=== PATIENT | male | born 1950 | race Caucasian/White ===

== ENCOUNTER 2017-05-10 13:04 | Inpatient (IN) | payer MEDICARE, MEDICAID ==
[2017-05-10 13:24] LABS: POC GLUCOSE 241 mg/dL (70-99)
[2017-05-10] MEDS ORDERED: ONDANSETRON PF 4 MG/2 ML VIAL. IV (14:15)
[2017-05-10 14:44] LABS: BASO # 0.1 x10^3/uL (0.0-0.2); BASO % 0 % (0-3); EOS % 0 % (0-3); HEMATOCRIT 36.2 % (39.0-53.0); HEMOGLOBIN 12.3 g/dL (13.0-17.5); LYMPH # 1.2 x10^3/uL (1.0-4.8); LYMPH % 5 % (24-48); MEAN CORPUSCULAR HEMOGLOBIN 32 pg (25-35); MEAN CORPUSCULAR HGB CONC 34 g/dL (31-37); MEAN CORPUSCULAR VOLUME 94 fL (79-100); MONO # 1.5 x10^3/uL (0.0-1.1); MONO % 6 % (0-9); NEUT # 23.3 x10^3uL (1.8-7.7); NEUT % 89 % (31-73); PLATELET COUNT 200 x10^3/uL (140-400); RED BLOOD COUNT 3.84 x10^6/uL (4.30-5.70); RED CELL DISTRIBUTION WIDTH 14.5 % (11.5-14.5); WHITE BLOOD COUNT 26.1 x10^3/uL (4.0-11.0)
[2017-05-10 14:45] LABS: ADD MAN DIFF? YES
[2017-05-10 15:04] LABS: ANION GAP 19 (6-14); BLOOD UREA NITROGEN 77 mg/dL (8-26); CALCIUM 9.8 mg/dL (8.5-10.1); CARBON DIOXIDE 23 mmol/L (21-32); CHLORIDE 86 mmol/L (98-107); CREATININE 9.6 mg/dL (0.7-1.3); GFR 5.5; GLUCOSE 227 mg/dL (70-99); MAGNESIUM 1.6 mg/dL (1.8-2.4); PHOSPHORUS 6.4 mg/dL (2.6-4.7); POTASSIUM 3.5 mmol/L (3.5-5.1); SODIUM 128 mmol/L (136-145)
[2017-05-10] MEDS ORDERED: HYDROcodone/APAP 10/325 1 TAB TABLET PO (15:15)
[2017-05-10] MEDS: KETOROLAC 15 MG/ML VIAL. IV (15:16)
[2017-05-10 15:22] LABS: % BANDS 16 % (0-9); % LYMPHS 6 % (24-48); % MONOS 9 % (0-10); % SEGS 69 % (35-66); PLT ESTIMATE ADEQUATE (ADEQUATE)
[2017-05-10 16:00] LABS: ANION GAP 21 (6-14); BLOOD UREA NITROGEN 81 mg/dL (8-26); BUN/CREATININE RATIO 8 (6-20); CALCIUM 9.6 mg/dL (8.5-10.1); CARBON DIOXIDE 23 mmol/L (21-32); CHLORIDE 85 mmol/L (98-107); CREATININE 9.8 mg/dL (0.7-1.3); GFR 5.3; GLUCOSE 213 mg/dL (70-99); POTASSIUM 3.4 mmol/L (3.5-5.1); SODIUM 129 mmol/L (136-145)
[2017-05-10] MEDS: METOPROLOL SUCC 24HR ER 50 MG TAB.ER.24H. PO (16:01)
[2017-05-10] MEDS: LISINOPRIL 2.5 MG TABLET PO (16:01)
[2017-05-10] MEDS: APIXABAN 5 MG TABLET. PO (16:02)
[2017-05-10] MEDS: CINACALCET HCL 30 MG TABLET PO (16:02)
[2017-05-10] MEDS: CALCIUM ACETATE 667 MG CAPSULE PO (16:03)
[2017-05-10] MEDS: FOLIC/VIT B COMP W-C (RENAL) TABLET. PO (16:04)
[2017-05-10 16:05] LABS: ALBUMIN/GLOBULIN RATIO 0.7 (1.0-1.7); ALK PHOS 79 U/L (46-116); ALT (SGPT) 35 U/L (16-63); AST (SGOT) 33 U/L (15-37); TOTAL BILIRUBIN 0.7 mg/dL (0.2-1.0); TOTAL PROTEIN 7.6 g/dL (6.4-8.2)
[2017-05-10] MEDS: PIPERACILLIN/TAZO IV Push 2.25 GM VIAL. IVP (16:12)
[2017-05-10] MEDS: MAGNESIUM SULFATE 2GM 50 ML IV (16:13)
[2017-05-10 16:44] LABS: POC GLUCOSE 242 mg/dL (70-99)
[2017-05-10] MEDS ORDERED: DEXTROSE 50% 25 GM / 50ML DISP.SYRIN. IV (17:45)
[2017-05-10] MEDS ORDERED: PIPERACILLIN/TAZOBACTAM 3.375 GM in IV DEXTROSE 5% 50 ML IV (18:00)
[2017-05-10 20:51] LABS: POC GLUCOSE 172 mg/dL (70-99)
[2017-05-10] MEDS: LACTOBACILLUS RHAMNOSUS GG 1 CAPSULE. PO (20:52)
[2017-05-10] MEDS: ACETAMINOPHEN 325 MG TABLET. PO (20:52)
[2017-05-11] MEDS: PIPERACILLIN/TAZO IV Push 2.25 GM VIAL. IVP ×4 (00:04→17:04)
[2017-05-11 04:25] LABS: HEMOGLOBIN 10.9 g/dL (13.0-17.5)
[2017-05-11 04:44] LABS: ALBUMIN 2.5 g/dL (3.4-5.0); ANION GAP 17 (6-14); BLOOD UREA NITROGEN 92 mg/dL (8-26); CALCIUM 9.1 mg/dL (8.5-10.1); CARBON DIOXIDE 25 mmol/L (21-32); CHLORIDE 86 mmol/L (98-107); CHOLESTEROL 110 mg/dL (0-200); CREATININE 11.3 mg/dL (0.7-1.3); GFR 4.5; GLUCOSE 210 mg/dL (70-99); HDLC 9 mg/dL (40-60); LDLC 58 mg/dL (0-100); NON-HDL CHOLESTEROL 101 mg/dL (0-129); PHOSPHORUS 7.7 mg/dL (2.6-4.7); SODIUM 128 mmol/L (136-145); TRIGLYCERIDES 214 mg/dL (0-150); VLDLC 43 mg/dL (0-40)
[2017-05-11 04:46] LABS: CHOLESTEROL/HDL RATIO 12.2
[2017-05-11 07:07] LABS: POC GLUCOSE 209 mg/dL (70-99)
[2017-05-11] MEDS: CALCIUM ACETATE 667 MG CAPSULE PO ×3 (08:00→17:03)
[2017-05-11] MEDS: APIXABAN 5 MG TABLET. PO ×2 (09:00→21:13)
[2017-05-11] MEDS: LACTOBACILLUS RHAMNOSUS GG 1 CAPSULE. PO ×2 (09:00→21:13)
[2017-05-11] MEDS ORDERED: METOPROLOL SUCC 24HR ER 25 MG TAB.ER.24H. PO (09:00)
[2017-05-11] MEDS ORDERED: IV NORMAL SALINE 1000ML BAG 1,000 ML IV ×2 (09:18)
[2017-05-11] MEDS ORDERED: diphenhydrAMINE 50 MG/ML VIAL IV ×2 (09:30)
[2017-05-11] MEDS ORDERED: DIALYSIS PATIENT. MC (09:30)
[2017-05-11] MEDS: INSULIN ASPART 300 UNITS/3 ML INSULN.PEN SQ ×3 (10:15→17:40)
[2017-05-11] MEDS: METOPROLOL SUCC 24HR ER 50 MG TAB.ER.24H. PO (11:29)
[2017-05-11] MEDS: LISINOPRIL 2.5 MG TABLET PO (11:30)
[2017-05-11] MEDS: HYDROcodone/APAP 10/325 1 TAB TABLET PO ×2 (11:30→21:17)
[2017-05-11] MEDS ORDERED: CONTRAST GIVEN MC (13:15)
[2017-05-11] MEDS: ANTI-COAG MONITOR BY PHARMACY. MC (13:38)
[2017-05-11] MEDS: VANCOMYCIN PER PHARMACY MC (13:48)
[2017-05-11] MEDS: IOHEXOL 300 MG/ML 100ML VIAL. IV (14:11)
[2017-05-11] MEDS: MORPHINE SULFATE 4 MG/ML DISP.SYRIN. IV (15:05)
[2017-05-11] MEDS: VANCOMYCIN 2 GM in IV DEXTROSE 5% 500 ML IV (15:24)
[2017-05-11] MEDS: PANTOPRAZOLE 40 MG TABLET.DR. PO (15:24)
[2017-05-11] MEDS: CINACALCET HCL 30 MG TABLET PO (15:24)
[2017-05-11] MEDS: FOLIC/VIT B COMP W-C (RENAL) TABLET. PO (15:24)
[2017-05-11] MEDS: REPAGLINIDE 0.5 MG TABLET PO (15:25)
[2017-05-11 16:15] LABS: POC GLUCOSE 181 mg/dL (70-99)
[2017-05-12] MEDS: PIPERACILLIN/TAZO IV Push 2.25 GM VIAL. IVP ×4 (00:47→17:25)
[2017-05-12 05:24] LABS: ADD MAN DIFF? NO
[2017-05-12 05:32] LABS: BASO # 0.1 x10^3/uL (0.0-0.2); BASO % 0 % (0-3); EOS # 0.3 x10^3/uL (0.0-0.7); EOS % 2 % (0-3); HEMATOCRIT 30.8 % (39.0-53.0); HEMOGLOBIN 10.6 g/dL (13.0-17.5); LYMPH # 1.1 x10^3/uL (1.0-4.8); LYMPH % 6 % (24-48); MEAN CORPUSCULAR HEMOGLOBIN 32 pg (25-35); MEAN CORPUSCULAR HGB CONC 34 g/dL (31-37); MEAN CORPUSCULAR VOLUME 94 fL (79-100); MONO # 1.6 x10^3/uL (0.0-1.1); MONO % 9 % (0-9); NEUT # 15.1 x10^3uL (1.8-7.7); NEUT % 83 % (31-73); PLATELET COUNT 178 x10^3/uL (140-400); RED BLOOD COUNT 3.29 x10^6/uL (4.30-5.70); RED CELL DISTRIBUTION WIDTH 14.7 % (11.5-14.5); WHITE BLOOD COUNT 18.1 x10^3/uL (4.0-11.0)
[2017-05-12 05:53] LABS: ALBUMIN 2.1 g/dL (3.4-5.0); ALBUMIN/GLOBULIN RATIO 0.5 (1.0-1.7); ALK PHOS 65 U/L (46-116); ALT (SGPT) 51 U/L (16-63); ANION GAP 12 (6-14); AST (SGOT) 52 U/L (15-37); BLOOD UREA NITROGEN 53 mg/dL (8-26); BUN/CREATININE RATIO 7 (6-20); CALCIUM 8.2 mg/dL (8.5-10.1); CARBON DIOXIDE 28 mmol/L (21-32); CHLORIDE 89 mmol/L (98-107); CREATININE 7.2 mg/dL (0.7-1.3); GFR 7.6; GLUCOSE 84 mg/dL (70-99); POTASSIUM 3.3 mmol/L (3.5-5.1); SODIUM 129 mmol/L (136-145); TOTAL BILIRUBIN 0.7 mg/dL (0.2-1.0); TOTAL PROTEIN 6.6 g/dL (6.4-8.2)
[2017-05-12] MEDS: HYDROcodone/APAP 10/325 1 TAB TABLET PO ×2 (06:10→17:20)
[2017-05-12 06:50] LABS: ALBUMIN 2.2 g/dL (3.4-5.0); ANION GAP 13 (6-14); BLOOD UREA NITROGEN 56 mg/dL (8-26); CALCIUM 8.2 mg/dL (8.5-10.1); CARBON DIOXIDE 28 mmol/L (21-32); CHLORIDE 90 mmol/L (98-107); CREATININE 7.2 mg/dL (0.7-1.3); GFR 7.6; GLUCOSE 83 mg/dL (70-99); PHOSPHORUS 4.3 mg/dL (2.6-4.7); POTASSIUM 3.3 mmol/L (3.5-5.1); SODIUM 131 mmol/L (136-145)
[2017-05-12] MEDS: INSULIN ASPART 300 UNITS/3 ML INSULN.PEN SQ ×3 (08:00→17:00)
[2017-05-12] MEDS: PANTOPRAZOLE 40 MG TABLET.DR. PO (08:08)
[2017-05-12] MEDS: CALCIUM ACETATE 667 MG CAPSULE PO ×3 (08:08→17:20)
[2017-05-12 08:21] LABS: POC GLUCOSE 93 mg/dL (70-99)
[2017-05-12 10:46] LABS: POC GLUCOSE 155 mg/dL (70-99)
[2017-05-12] MEDS: APIXABAN 5 MG TABLET. PO ×2 (11:51→21:41)
[2017-05-12] MEDS: LACTOBACILLUS RHAMNOSUS GG 1 CAPSULE. PO ×2 (11:51→21:41)
[2017-05-12] MEDS: FOLIC/VIT B COMP W-C (RENAL) TABLET. PO (11:51)
[2017-05-12] MEDS: MORPHINE SULFATE 4 MG/ML DISP.SYRIN. IV ×2 (11:51→17:24)
[2017-05-12] MEDS: METOPROLOL SUCC 24HR ER 50 MG TAB.ER.24H. PO (11:52)
[2017-05-12] MEDS: CINACALCET HCL 30 MG TABLET PO (11:52)
[2017-05-12] MEDS: REPAGLINIDE 0.5 MG TABLET PO (11:52)
[2017-05-12] MEDS: LISINOPRIL 2.5 MG TABLET PO (11:53)
[2017-05-12] MEDS: LINEZOLID 600 MG TABLET PO ×2 (12:03→21:41)
[2017-05-12] MEDS: VANCOMYCIN PER PHARMACY MC ×3 (14:15→14:27)
[2017-05-12] MEDS: ANTI-COAG MONITOR BY PHARMACY. MC (14:26)
[2017-05-12] MEDS: POTASSIUM CHLORIDE 20 MEQ TABLET.ER. PO (15:07)
[2017-05-12 16:19] LABS: POC GLUCOSE 152 mg/dL (70-99)
[2017-05-12 21:11] LABS: POC GLUCOSE 108 mg/dL (70-99)
[2017-05-13] MEDS: PIPERACILLIN/TAZO IV Push 2.25 GM VIAL. IVP ×3 (00:08→12:00)
[2017-05-13 05:16] LABS: ADD MAN DIFF? NO
[2017-05-13 05:36] LABS: BASO # 0.1 x10^3/uL (0.0-0.2); BASO % 0 % (0-3); EOS # 0.7 x10^3/uL (0.0-0.7); EOS % 3 % (0-3); HEMATOCRIT 32.3 % (39.0-53.0); HEMOGLOBIN 10.9 g/dL (13.0-17.5); LYMPH # 1.3 x10^3/uL (1.0-4.8); LYMPH % 5 % (24-48); MEAN CORPUSCULAR HEMOGLOBIN 32 pg (25-35); MEAN CORPUSCULAR HGB CONC 34 g/dL (31-37); MEAN CORPUSCULAR VOLUME 95 fL (79-100); MONO # 2.1 x10^3/uL (0.0-1.1); MONO % 9 % (0-9); NEUT # 20.9 x10^3uL (1.8-7.7); NEUT % 83 % (31-73); PLATELET COUNT 203 x10^3/uL (140-400); RED BLOOD COUNT 3.41 x10^6/uL (4.30-5.70); RED CELL DISTRIBUTION WIDTH 14.8 % (11.5-14.5); WHITE BLOOD COUNT 25.1 x10^3/uL (4.0-11.0)
[2017-05-13 05:47] LABS: ALBUMIN/GLOBULIN RATIO 0.4 (1.0-1.7); ALK PHOS 79 U/L (46-116); ALT (SGPT) 52 U/L (16-63); ANION GAP 11 (6-14); AST (SGOT) 40 U/L (15-37); BLOOD UREA NITROGEN 71 mg/dL (8-26); BUN/CREATININE RATIO 8 (6-20); CALCIUM 8.1 mg/dL (8.5-10.1); CARBON DIOXIDE 28 mmol/L (21-32); CHLORIDE 88 mmol/L (98-107); CREATININE 9.2 mg/dL (0.7-1.3); GFR 5.7; GLUCOSE 120 mg/dL (70-99); MAGNESIUM 2.1 mg/dL (1.8-2.4); SODIUM 127 mmol/L (136-145); TOTAL BILIRUBIN 1.1 mg/dL (0.2-1.0); TOTAL PROTEIN 6.6 g/dL (6.4-8.2)
[2017-05-13 07:40] LABS: POC GLUCOSE 121 mg/dL (70-99)
[2017-05-13] MEDS: INSULIN ASPART 300 UNITS/3 ML INSULN.PEN SQ ×3 (08:00→17:25)
[2017-05-13] MEDS ORDERED: IV NORMAL SALINE 1000ML BAG 1,000 ML IV (08:19)
[2017-05-13] MEDS ORDERED: 0.9 % SODIUM CHLORIDE 10 ML DISP.SYRIN. IV ×2 (08:30)
[2017-05-13] MEDS ORDERED: ALBUMIN HUMAN 25% 200 ML IV (08:30)
[2017-05-13] MEDS ORDERED: DIALYSIS PATIENT. MC (08:30)
[2017-05-13] MEDS: CALCIUM ACETATE 667 MG CAPSULE PO ×3 (08:41→17:22)
[2017-05-13 13:53] LABS: POC GLUCOSE 126 mg/dL (70-99)
[2017-05-13] MEDS: LINEZOLID 600 MG TABLET PO (13:54)
[2017-05-13] MEDS: FOLIC/VIT B COMP W-C (RENAL) TABLET. PO (13:54)
[2017-05-13] MEDS: PANTOPRAZOLE 40 MG TABLET.DR. PO (13:55)
[2017-05-13] MEDS: LISINOPRIL 2.5 MG TABLET PO (13:55)
[2017-05-13] MEDS: METOPROLOL SUCC 24HR ER 50 MG TAB.ER.24H. PO (13:55)
[2017-05-13] MEDS: APIXABAN 5 MG TABLET. PO (13:56)
[2017-05-13] MEDS: CINACALCET HCL 30 MG TABLET PO (13:56)
[2017-05-13] MEDS: REPAGLINIDE 0.5 MG TABLET PO (13:56)
[2017-05-13] MEDS: LACTOBACILLUS RHAMNOSUS GG 1 CAPSULE. PO (13:56)
[2017-05-13] MEDS: ANTI-COAG MONITOR BY PHARMACY. MC (15:29)
[2017-05-13] MEDS: NAFCILLIN 2 GM in IV NORMAL SALINE 100ML 100 ML IV ×2 (15:39→20:06)
[2017-05-13 16:53] LABS: POC GLUCOSE 207 mg/dL (70-99)
[2017-05-13 21:38] LABS: POC GLUCOSE 252 mg/dL (70-99)
[2017-05-14] MEDS: NAFCILLIN 2 GM in IV NORMAL SALINE 100ML 100 ML IV ×8 (00:01→21:06)
[2017-05-14] MEDS: LINEZOLID 600 MG TABLET PO ×3 (00:01→21:08)
[2017-05-14] MEDS: APIXABAN 5 MG TABLET. PO ×2 (00:01→12:26)
[2017-05-14] MEDS: LACTOBACILLUS RHAMNOSUS GG 1 CAPSULE. PO ×3 (00:01→21:06)
[2017-05-14] MEDS ORDERED: VANCOMYCIN RANDOM LEVEL. MC (06:00)
[2017-05-14 07:06] LABS: ADD MAN DIFF? NO
[2017-05-14] MEDS ORDERED: IV NORMAL SALINE 1000ML BAG 1,000 ML IV ×2 (07:30)
[2017-05-14] MEDS: POTASSIUM CHLORIDE 20 MEQ TABLET.ER. PO (07:30)
[2017-05-14 07:34] LABS: BASO # 0.1 x10^3/uL (0.0-0.2); BASO % 1 % (0-3); EOS # 0.6 x10^3/uL (0.0-0.7); EOS % 3 % (0-3); HEMATOCRIT 32.2 % (39.0-53.0); HEMOGLOBIN 10.8 g/dL (13.0-17.5); LYMPH # 1.1 x10^3/uL (1.0-4.8); LYMPH % 5 % (24-48); MEAN CORPUSCULAR HEMOGLOBIN 32 pg (25-35); MEAN CORPUSCULAR HGB CONC 34 g/dL (31-37); MEAN CORPUSCULAR VOLUME 95 fL (79-100); MONO # 1.7 x10^3/uL (0.0-1.1); MONO % 8 % (0-9); NEUT # 18.7 x10^3uL (1.8-7.7); NEUT % 84 % (31-73); PLATELET COUNT 231 x10^3/uL (140-400); RED CELL DISTRIBUTION WIDTH 15.1 % (11.5-14.5); WHITE BLOOD COUNT 22.3 x10^3/uL (4.0-11.0)
[2017-05-14] MEDS: PANTOPRAZOLE 40 MG TABLET.DR. PO (07:35)
[2017-05-14] MEDS: CALCIUM ACETATE 667 MG CAPSULE PO ×3 (07:37→17:21)
[2017-05-14 07:55] LABS: MAGNESIUM 2.3 mg/dL (1.8-2.4)
[2017-05-14 07:55] LABS: ALBUMIN 1.8 g/dL (3.4-5.0); ALBUMIN/GLOBULIN RATIO 0.4 (1.0-1.7); ALK PHOS 90 U/L (46-116); ALT (SGPT) 39 U/L (16-63); ANION GAP 10 (6-14); AST (SGOT) 25 U/L (15-37); BLOOD UREA NITROGEN 50 mg/dL (8-26); BUN/CREATININE RATIO 7 (6-20); CALCIUM 8.7 mg/dL (8.5-10.1); CARBON DIOXIDE 29 mmol/L (21-32); CHLORIDE 94 mmol/L (98-107); CREATININE 6.7 mg/dL (0.7-1.3); GFR 8.3; GLUCOSE 232 mg/dL (70-99); POTASSIUM 3.7 mmol/L (3.5-5.1); SODIUM 133 mmol/L (136-145); TOTAL BILIRUBIN 2.9 mg/dL (0.2-1.0); TOTAL PROTEIN 6.4 g/dL (6.4-8.2)
[2017-05-14 08:00] LABS: THYROID STIM HORMONE (TSH) 4.052 uIU/mL (0.358-3.74)
[2017-05-14 08:05] LABS: POC GLUCOSE 210 mg/dL (70-99)
[2017-05-14] MEDS: INSULIN ASPART 300 UNITS/3 ML INSULN.PEN SQ ×3 (08:17→17:27)
[2017-05-14 08:34] LABS: SEDIMENTATION RATE 118 (0-15)
[2017-05-14] MEDS ORDERED: DIALYSIS PATIENT. MC (09:00)
[2017-05-14] MEDS: DEXAMETHASONE SOD PHOS 4 MG/ML VIAL IV ×3 (09:30→17:21)
[2017-05-14 12:05] LABS: POC GLUCOSE 194 mg/dL (70-99)
[2017-05-14] MEDS: CINACALCET HCL 30 MG TABLET PO (12:25)
[2017-05-14] MEDS: FOLIC/VIT B COMP W-C (RENAL) TABLET. PO (12:25)
[2017-05-14] MEDS: REPAGLINIDE 0.5 MG TABLET PO (12:25)
[2017-05-14] MEDS: MORPHINE SULFATE 2 MG/ML DISP.SYRIN. IV (12:25)
[2017-05-14] MEDS: LISINOPRIL 2.5 MG TABLET PO (12:26)
[2017-05-14] MEDS: METOPROLOL SUCC 24HR ER 50 MG TAB.ER.24H. PO (12:26)
[2017-05-14] MEDS: HYDROcodone/APAP 10/325 1 TAB TABLET PO (13:34)
[2017-05-14 13:51] LABS: AMMONIA 10 mcmol/L (11-34)
[2017-05-14 13:52] LABS: ALBUMIN 1.8 g/dL (3.4-5.0); ALK PHOS 97 U/L (46-116); ALT (SGPT) 36 U/L (16-63); AST (SGOT) 22 U/L (15-37); DIRECT BILIRUBIN 1.7 mg/dL (0.0-0.2); TOTAL BILIRUBIN 2.7 mg/dL (0.2-1.0); TOTAL PROTEIN 6.7 g/dL (6.4-8.2)
[2017-05-14] MEDS: ANTI-COAG MONITOR BY PHARMACY. MC (14:25)
[2017-05-14] MEDS ORDERED: CONTRAST GIVEN MC (14:30)
[2017-05-14] MEDS: IOHEXOL 300 MG/ML 100ML VIAL. IV (14:30)
[2017-05-14 17:41] LABS: POC GLUCOSE 298 mg/dL (70-99)
[2017-05-15] MEDS: NAFCILLIN 2 GM in IV NORMAL SALINE 100ML 100 ML IV ×7 (00:10→23:53)
[2017-05-15] MEDS: DEXAMETHASONE SOD PHOS 4 MG/ML VIAL IV ×5 (00:10→23:53)
[2017-05-15 05:05] LABS: ADD MAN DIFF? NO
[2017-05-15 05:29] LABS: BASO % 0 % (0-3); EOS % 0 % (0-3); HEMATOCRIT 30.6 % (39.0-53.0); HEMOGLOBIN 10.2 g/dL (13.0-17.5); LYMPH # 0.9 x10^3/uL (1.0-4.8); LYMPH % 5 % (24-48); MEAN CORPUSCULAR HEMOGLOBIN 32 pg (25-35); MEAN CORPUSCULAR HGB CONC 34 g/dL (31-37); MEAN CORPUSCULAR VOLUME 95 fL (79-100); MONO # 1.1 x10^3/uL (0.0-1.1); MONO % 6 % (0-9); NEUT # 16.7 x10^3uL (1.8-7.7); NEUT % 89 % (31-73); PLATELET COUNT 270 x10^3/uL (140-400); RED BLOOD COUNT 3.22 x10^6/uL (4.30-5.70); RED CELL DISTRIBUTION WIDTH 14.8 % (11.5-14.5); WHITE BLOOD COUNT 18.7 x10^3/uL (4.0-11.0)
[2017-05-15 05:53] LABS: MAGNESIUM 2.3 mg/dL (1.8-2.4)
[2017-05-15 05:54] LABS: ALBUMIN 1.8 g/dL (3.4-5.0); ANION GAP 12 (6-14); BLOOD UREA NITROGEN 50 mg/dL (8-26); CALCIUM 8.1 mg/dL (8.5-10.1); CARBON DIOXIDE 25 mmol/L (21-32); CHLORIDE 96 mmol/L (98-107); CREATININE 5.5 mg/dL (0.7-1.3); GFR 10.4; GLUCOSE 310 mg/dL (70-99); PHOSPHORUS 3.8 mg/dL (2.6-4.7); POTASSIUM 4.3 mmol/L (3.5-5.1); SODIUM 133 mmol/L (136-145)
[2017-05-15] MEDS: ANTI-COAG MONITOR BY PHARMACY. MC (09:19)
[2017-05-15] MEDS: PANTOPRAZOLE 40 MG TABLET.DR. PO (09:30)
[2017-05-15] MEDS: CINACALCET HCL 30 MG TABLET PO (09:31)
[2017-05-15] MEDS: LISINOPRIL 2.5 MG TABLET PO (09:31)
[2017-05-15] MEDS: FOLIC/VIT B COMP W-C (RENAL) TABLET. PO (09:31)
[2017-05-15] MEDS: LACTOBACILLUS RHAMNOSUS GG 1 CAPSULE. PO ×2 (09:31→20:27)
[2017-05-15] MEDS: METOPROLOL SUCC 24HR ER 50 MG TAB.ER.24H. PO (09:32)
[2017-05-15] MEDS: LINEZOLID 600 MG TABLET PO ×2 (09:32→20:27)
[2017-05-15] MEDS: CALCIUM ACETATE 667 MG CAPSULE PO ×3 (09:32→16:36)
[2017-05-15] MEDS: INSULIN ASPART 300 UNITS/3 ML INSULN.PEN SQ ×3 (09:47→18:09)
[2017-05-15 11:29] LABS: VITAMIN-B12 > 2000 pg/mL (247-911)
[2017-05-15 13:00] LABS: POC GLUCOSE 283 mg/dL (70-99)
[2017-05-15] MEDS ORDERED: AMINO AC 3%/ELECTROLYTE/GLYCER 1,000 ML IV (13:15)
[2017-05-15] MEDS: REPAGLINIDE 0.5 MG TABLET PO (14:19)
[2017-05-15 18:09] LABS: MRSA BY PCR Negative (Negative)
[2017-05-15 18:46] LABS: POC GLUCOSE 314 mg/dL (70-99)
[2017-05-16] MEDS: NAFCILLIN 2 GM in IV NORMAL SALINE 100ML 100 ML IV ×2 (03:57→08:45)
[2017-05-16] MEDS: DEXAMETHASONE SOD PHOS 4 MG/ML VIAL IV ×4 (05:45→17:53)
[2017-05-16 05:46] LABS: ADD MAN DIFF? NO
[2017-05-16 05:50] LABS: BASO # 0.1 x10^3/uL (0.0-0.2); BASO % 0 % (0-3); EOS # 0.4 x10^3/uL (0.0-0.7); EOS % 2 % (0-3); HEMOGLOBIN 10.2 g/dL (13.0-17.5); LYMPH # 1.5 x10^3/uL (1.0-4.8); LYMPH % 8 % (24-48); MEAN CORPUSCULAR HEMOGLOBIN 32 pg (25-35); MEAN CORPUSCULAR HGB CONC 34 g/dL (31-37); MEAN CORPUSCULAR VOLUME 95 fL (79-100); MONO # 0.9 x10^3/uL (0.0-1.1); MONO % 5 % (0-9); NEUT # 15.8 x10^3uL (1.8-7.7); NEUT % 84 % (31-73); PLATELET COUNT 344 x10^3/uL (140-400); RED BLOOD COUNT 3.15 x10^6/uL (4.30-5.70); WHITE BLOOD COUNT 18.7 x10^3/uL (4.0-11.0)
[2017-05-16 06:29] LABS: ALBUMIN 1.7 g/dL (3.4-5.0); ALBUMIN/GLOBULIN RATIO 0.4 (1.0-1.7); ALK PHOS 75 U/L (46-116); ALT (SGPT) 24 U/L (16-63); ANION GAP 17 (6-14); AST (SGOT) 15 U/L (15-37); BLOOD UREA NITROGEN 68 mg/dL (8-26); BUN/CREATININE RATIO 10 (6-20); CALCIUM 8.4 mg/dL (8.5-10.1); CARBON DIOXIDE 23 mmol/L (21-32); CHLORIDE 94 mmol/L (98-107); CREATININE 6.9 mg/dL (0.7-1.3); GLUCOSE 273 mg/dL (70-99); PHOSPHORUS 6.2 mg/dL (2.6-4.7); POTASSIUM 4.2 mmol/L (3.5-5.1); SODIUM 134 mmol/L (136-145); TOTAL BILIRUBIN 1.8 mg/dL (0.2-1.0); TOTAL PROTEIN 6.2 g/dL (6.4-8.2)
[2017-05-16 08:26] LABS: POC GLUCOSE 265 mg/dL (70-99)
[2017-05-16] MEDS: PANTOPRAZOLE 40 MG TABLET.DR. PO (08:44)
[2017-05-16] MEDS: FOLIC/VIT B COMP W-C (RENAL) TABLET. PO (08:45)
[2017-05-16] MEDS: LINEZOLID 600 MG TABLET PO ×2 (08:45→20:01)
[2017-05-16] MEDS: CINACALCET HCL 30 MG TABLET PO (08:45)
[2017-05-16] MEDS: LISINOPRIL 2.5 MG TABLET PO (08:45)
[2017-05-16] MEDS: REPAGLINIDE 0.5 MG TABLET PO (08:45)
[2017-05-16] MEDS: LACTOBACILLUS RHAMNOSUS GG 1 CAPSULE. PO ×2 (08:45→20:01)
[2017-05-16] MEDS: CALCIUM ACETATE 667 MG CAPSULE PO ×3 (08:45→17:53)
[2017-05-16] MEDS: METOPROLOL SUCC 24HR ER 50 MG TAB.ER.24H. PO (08:46)
[2017-05-16] MEDS: INSULIN ASPART 300 UNITS/3 ML INSULN.PEN SQ ×3 (08:48→17:57)
[2017-05-16] MEDS: HEPARIN for IV BOLUS 10,000 UNIT/10 ML VIAL. IV (09:15)
[2017-05-16] MEDS ORDERED: ANTI-COAG MONITOR BY PHARMACY. MC (09:15)
[2017-05-16] MEDS: NAFCILLIN IV ×3 (13:12→20:02)
[2017-05-16] MEDS: NORMAL SALINE IV ×3 (13:12→20:02)
[2017-05-16 13:18] LABS: POC GLUCOSE 283 mg/dL (70-99)
[2017-05-16] MEDS ORDERED: CONTRAST GIVEN MC (14:00)
[2017-05-16] MEDS: IOHEXOL 300 MG/ML 10ML VIAL. IT (14:00)
[2017-05-16 16:13] LABS: ALBUM 2.2 g/dL (2.9-4.4); ALPHA 1 0.4 g/dL (0.0-0.4); ALPHA 2 1.1 g/dL (0.4-1.0); ANA INTERP Negative (.); BETA 0.8 g/dL (0.7-1.3); M-SPIKE Not Observed g/dL (Not Observed); PROTEIN TOTAL 5.5 g/dL (6.0-8.5); SPEP AG RATIO 0.7 (0.7-1.7)
[2017-05-16 17:45] LABS: POC GLUCOSE 332 mg/dL (70-99)
[2017-05-16] MEDS: HYDROcodone/APAP 10/325 1 TAB TABLET PO (18:24)
[2017-05-17] MEDS: DEXAMETHASONE SOD PHOS 4 MG/ML VIAL IV ×4 (01:36→18:00)
[2017-05-17] MEDS: NORMAL SALINE IV ×6 (01:36→20:20)
[2017-05-17] MEDS: NAFCILLIN IV ×6 (01:36→20:20)
[2017-05-17] MEDS: HYDROcodone/APAP 10/325 1 TAB TABLET PO ×3 (05:03→20:19)
[2017-05-17 05:29] LABS: ADD MAN DIFF? NO
[2017-05-17 05:40] LABS: BASO # 0.1 x10^3/uL (0.0-0.2); BASO % 0 % (0-3); EOS # 0.3 x10^3/uL (0.0-0.7); EOS % 2 % (0-3); HEMATOCRIT 31.4 % (39.0-53.0); HEMOGLOBIN 10.5 g/dL (13.0-17.5); LYMPH % 6 % (24-48); MEAN CORPUSCULAR HEMOGLOBIN 32 pg (25-35); MEAN CORPUSCULAR HGB CONC 34 g/dL (31-37); MEAN CORPUSCULAR VOLUME 95 fL (79-100); MONO % 6 % (0-9); NEUT # 14.6 x10^3uL (1.8-7.7); NEUT % 86 % (31-73); PLATELET COUNT 370 x10^3/uL (140-400); RED BLOOD COUNT 3.31 x10^6/uL (4.30-5.70); RED CELL DISTRIBUTION WIDTH 15.4 % (11.5-14.5); WHITE BLOOD COUNT 16.9 x10^3/uL (4.0-11.0)
[2017-05-17 05:57] LABS: ALBUMIN 1.7 g/dL (3.4-5.0); ALBUMIN/GLOBULIN RATIO 0.3 (1.0-1.7); ALK PHOS 80 U/L (46-116); ALT (SGPT) 19 U/L (16-63); ANION GAP 16 (6-14); AST (SGOT) 11 U/L (15-37); BLOOD UREA NITROGEN 93 mg/dL (8-26); BUN/CREATININE RATIO 12 (6-20); CALCIUM 8.3 mg/dL (8.5-10.1); CARBON DIOXIDE 23 mmol/L (21-32); CHLORIDE 93 mmol/L (98-107); CREATININE 7.9 mg/dL (0.7-1.3); GFR 6.8; GLUCOSE 377 mg/dL (70-99); PHOSPHORUS 6.6 mg/dL (2.6-4.7); POTASSIUM 4.2 mmol/L (3.5-5.1); SODIUM 132 mmol/L (136-145); TOTAL BILIRUBIN 1.7 mg/dL (0.2-1.0); TOTAL PROTEIN 6.7 g/dL (6.4-8.2)
[2017-05-17] MEDS: INSULIN ASPART 300 UNITS/3 ML INSULN.PEN SQ ×4 (08:00→16:36)
[2017-05-17 08:16] LABS: POC GLUCOSE 315 mg/dL (70-99)
[2017-05-17] MEDS: PANTOPRAZOLE 40 MG TABLET.DR. PO (08:33)
[2017-05-17] MEDS: LINEZOLID 600 MG TABLET PO ×2 (08:34→20:20)
[2017-05-17] MEDS: CINACALCET HCL 30 MG TABLET PO (08:34)
[2017-05-17] MEDS: LACTOBACILLUS RHAMNOSUS GG 1 CAPSULE. PO ×2 (08:34→20:19)
[2017-05-17] MEDS: CALCIUM ACETATE 667 MG CAPSULE PO ×3 (08:34→16:36)
[2017-05-17] MEDS: REPAGLINIDE 0.5 MG TABLET PO (08:34)
[2017-05-17] MEDS: LISINOPRIL 2.5 MG TABLET PO (08:34)
[2017-05-17] MEDS: FOLIC/VIT B COMP W-C (RENAL) TABLET. PO (08:34)
[2017-05-17] MEDS: METOPROLOL SUCC 24HR ER 50 MG TAB.ER.24H. PO (08:35)
[2017-05-17] MEDS: IOHEXOL 300 MG/ML 10ML VIAL. IT (13:27)
[2017-05-17 14:24] LABS: CSF GLUCOSE 239 mg/dL (37-70)
[2017-05-17 14:46] LABS: CSF PROTEIN 526.4 mg/dL (15.0-45.0)
[2017-05-17 14:47] LABS: CSF CLARITY CLEAR; CSF COLOR YELLOW; CSF MON % 79 %; CSF OTHER % 2 %; CSF PMN % 19 %; CSF RBC COUNT 0; CSF WBC COUNT 17
[2017-05-17 15:00] LABS: POC GLUCOSE 331 mg/dL (70-99)
[2017-05-17 16:57] LABS: POC GLUCOSE 309 mg/dL (70-99)
[2017-05-17] MEDS ORDERED: IV NORMAL SALINE 1000ML BAG 1,000 ML IV ×2 (17:22)
[2017-05-17] MEDS ORDERED: diphenhydrAMINE 50 MG/ML VIAL IV ×2 (17:30)
[2017-05-17] MEDS ORDERED: DIALYSIS PATIENT. MC (17:30)
[2017-05-17 19:12] LABS: HEMOGLOBIN A1C 6.3 % (4.8-5.6)
[2017-05-17 21:02] LABS: POC GLUCOSE 209 mg/dL (70-99)
[2017-05-17] MEDS: INSULIN DETEMIR 300 UNITS/3 ML INSULN.PEN. SQ (23:05)
[2017-05-18] MEDS: NORMAL SALINE IV ×6 (00:39→19:36)
[2017-05-18] MEDS: DEXAMETHASONE SOD PHOS 4 MG/ML VIAL IV ×4 (00:39→18:01)
[2017-05-18] MEDS: NAFCILLIN IV ×6 (00:39→19:36)
[2017-05-18] MEDS: HYDROcodone/APAP 10/325 1 TAB TABLET PO (04:47)
[2017-05-18 06:06] LABS: ADD MAN DIFF? NO
[2017-05-18 06:19] LABS: BASO # 0.1 x10^3/uL (0.0-0.2); BASO % 1 % (0-3); EOS # 0.3 x10^3/uL (0.0-0.7); EOS % 2 % (0-3); HEMATOCRIT 29.6 % (39.0-53.0); LYMPH # 1.3 x10^3/uL (1.0-4.8); LYMPH % 8 % (24-48); MEAN CORPUSCULAR HEMOGLOBIN 32 pg (25-35); MEAN CORPUSCULAR HGB CONC 34 g/dL (31-37); MEAN CORPUSCULAR VOLUME 95 fL (79-100); MONO # 0.8 x10^3/uL (0.0-1.1); MONO % 5 % (0-9); NEUT # 13.6 x10^3uL (1.8-7.7); NEUT % 84 % (31-73); PLATELET COUNT 346 x10^3/uL (140-400); RED BLOOD COUNT 3.13 x10^6/uL (4.30-5.70); RED CELL DISTRIBUTION WIDTH 14.7 % (11.5-14.5); WHITE BLOOD COUNT 16.2 x10^3/uL (4.0-11.0)
[2017-05-18 06:44] LABS: ALBUMIN 1.7 g/dL (3.4-5.0); ALBUMIN/GLOBULIN RATIO 0.4 (1.0-1.7); ALK PHOS 65 U/L (46-116); ALT (SGPT) 23 U/L (16-63); ANION GAP 12 (6-14); AST (SGOT) 17 U/L (15-37); BLOOD UREA NITROGEN 60 mg/dL (8-26); BUN/CREATININE RATIO 11 (6-20); CALCIUM 8.3 mg/dL (8.5-10.1); CARBON DIOXIDE 28 mmol/L (21-32); CHLORIDE 95 mmol/L (98-107); CREATININE 5.7 mg/dL (0.7-1.3); GLUCOSE 199 mg/dL (70-99); POTASSIUM 4.3 mmol/L (3.5-5.1); SODIUM 135 mmol/L (136-145); TOTAL BILIRUBIN 1.7 mg/dL (0.2-1.0); TOTAL PROTEIN 6.3 g/dL (6.4-8.2)
[2017-05-18] MEDS ORDERED: PROCHLORPERAZINE 10 MG/2 ML VIAL. IV ×2 (07:00→15:45)
[2017-05-18] MEDS ORDERED: MORPHINE SULFATE 2 MG/ML DISP.SYRIN. IV (07:00)
[2017-05-18] MEDS ORDERED: ONDANSETRON PF 4 MG/2 ML VIAL. IV ×2 (07:00→15:45)
[2017-05-18] MEDS ORDERED: fentaNYL PF VIAL 100 MCG/2 ML VIAL IV ×5 (07:00→15:45)
[2017-05-18] MEDS ORDERED: HYDROmorphone 2 MG/ML VIAL IV (07:00)
[2017-05-18] MEDS ORDERED: LIDOCAINE 1% PF 2 ML VIAL. ID ×2 (07:00→15:45)
[2017-05-18] MEDS: PANTOPRAZOLE 40 MG TABLET.DR. PO (07:30)
[2017-05-18] MEDS: CALCIUM ACETATE 667 MG CAPSULE PO ×3 (08:00→17:00)
[2017-05-18 08:07] LABS: POC GLUCOSE 181 mg/dL (70-99)
[2017-05-18] MEDS: IV RINGERS,LACTATED 1000ML 1,000 ML IV ×2 (08:08→15:32)
[2017-05-18] MEDS: INSULIN ASPART 300 UNITS/3 ML INSULN.PEN SQ ×2 (08:18→17:00)
[2017-05-18] MEDS: REPAGLINIDE 0.5 MG TABLET PO (09:00)
[2017-05-18] MEDS: FOLIC/VIT B COMP W-C (RENAL) TABLET. PO (09:00)
[2017-05-18] MEDS: CINACALCET HCL 30 MG TABLET PO (09:00)
[2017-05-18] MEDS: METOPROLOL SUCC 24HR ER 50 MG TAB.ER.24H. PO (09:00)
[2017-05-18] MEDS: LACTOBACILLUS RHAMNOSUS GG 1 CAPSULE. PO ×2 (09:00→21:23)
[2017-05-18] MEDS: LINEZOLID 600 MG TABLET PO ×2 (09:00→21:23)
[2017-05-18] MEDS: LISINOPRIL 2.5 MG TABLET PO (09:00)
[2017-05-18] MEDS ORDERED: GELATIN SPONGE SIZE 100. (10:14)
[2017-05-18] MEDS ORDERED: THROMBIN TOPICAL 20,000 UNIT SPRAY.SYRN KIT TP (10:14)
[2017-05-18] MEDS ORDERED: LIDOCAINE 2% PF Vial for OR 5 ML VIAL. (11:15)
[2017-05-18] MEDS ORDERED: ONDANSETRON PF 4 MG/2 ML VIAL. (11:15)
[2017-05-18] MEDS ORDERED: FAMOTIDINE 20 MG/2 ML VIAL (11:15)
[2017-05-18] MEDS ORDERED: REMIFENTANIL 2 MG VIAL. IV (11:15)
[2017-05-18] MEDS ORDERED: PROPOFOL 20 ML IV (11:15)
[2017-05-18] MEDS ORDERED: fentaNYL PF VIAL 100 MCG/2 ML VIAL (11:15)
[2017-05-18] MEDS ORDERED: MIDAZOLAM HCL/PF 2 MG/2 ML VIAL. (11:15)
[2017-05-18] MEDS: IV NORMAL SALINE 1000ML BAG 1,000 ML IV (11:27)
[2017-05-18] MEDS ORDERED: KETAMINE HCL 500 MG/10 ML VIAL. (12:52)
[2017-05-18] MEDS: LIDOCAINE 2%/EPI 1:100,000 20 ML VIAL. (13:04)
[2017-05-18] MEDS: BUPIVACAINE MPF 0.5% 30 ML VIAL. (13:04)
[2017-05-18] MEDS: BACITRACIN 50,000 UNIT in IV NORMAL SALINE 1000ML BAG 1,000 ML IRR (13:04)
[2017-05-18] MEDS ORDERED: PROPOFOL 100 ML IV (13:17)
[2017-05-18] MEDS ORDERED: DEXAMETHASONE SOD PHOS 20 MG/5 ML VIAL. (13:17)
[2017-05-18] MEDS ORDERED: PHENYLEPHRINE 10 MG/ML VIAL. (13:17)
[2017-05-18] MEDS ORDERED: DESFLURANE > 120 MINUTES IH (13:17)
[2017-05-18] MEDS ORDERED: PHENYLEPHRINE in 0.9% NACL PF 1 MG/10 ML SYRINGE. IV (13:17)
[2017-05-18 14:00] LABS: POC GLUCOSE 145 mg/dL (70-99)
[2017-05-18] MEDS ORDERED: PROPOFOL 50 ML IV (14:07)
[2017-05-18] MEDS ORDERED: MAGNESIUM SULFATE 2GM 50 ML IV (15:00)
[2017-05-18] MEDS ORDERED: IV NORMAL SALINE 1000ML BAG 1,000 ML IV (15:00)
[2017-05-18] MEDS ORDERED: METHOCARBAMOL 750 MG TABLET PO (15:15)
[2017-05-18 15:24] LABS: POC GLUCOSE 183 mg/dL (70-99)
[2017-05-18] MEDS ORDERED: MORPHINE SULFATE 2 MG/ML DISP.SYRIN. (15:29)
[2017-05-18] MEDS: fentaNYL PF VIAL 100 MCG/2 ML VIAL IV ×5 (15:30→18:03)
[2017-05-18] MEDS ORDERED: ANTI-COAG MONITOR BY PHARMACY. MC (15:30)
[2017-05-18] MEDS: MORPHINE SULFATE 2 MG/ML DISP.SYRIN. IV ×3 (15:37→22:43)
[2017-05-18] MEDS: HYDROmorphone 2 MG/ML VIAL IV ×4 (15:50→16:48)
[2017-05-18] MEDS ORDERED: diphenhydrAMINE 50 MG/ML VIAL IV ×2 (17:30)
[2017-05-18] MEDS ORDERED: DEXTROSE 50% 25 GM / 50ML DISP.SYRIN. IV (17:45)
[2017-05-18 17:56] LABS: POC GLUCOSE 196 mg/dL (70-99)
[2017-05-18] MEDS ORDERED: ACETAMINOPHEN 325 MG TABLET. PO (19:15)
[2017-05-18] MEDS: oxyCODONE/APAP 5/325 1 TAB TABLET PO ×2 (19:35→23:23)
[2017-05-18] MEDS ORDERED: hydrALAZINE 20 MG/ML VIAL. IVP (20:00)
[2017-05-18] MEDS: INSULIN DETEMIR 300 UNITS/3 ML INSULN.PEN. SQ (21:25)
[2017-05-18 21:28] LABS: POC GLUCOSE 220 mg/dL (70-99)
[2017-05-19] MEDS: DEXAMETHASONE SOD PHOS 4 MG/ML VIAL IV ×4 (00:29→18:18)
[2017-05-19] MEDS: IV NORMAL SALINE 1000ML BAG 1,000 ML IV ×2 (04:00→17:20)
[2017-05-19] MEDS: NORMAL SALINE IV ×6 (04:15→21:39)
[2017-05-19] MEDS: NAFCILLIN IV ×6 (04:15→21:39)
[2017-05-19] MEDS: oxyCODONE/APAP 5/325 1 TAB TABLET PO ×2 (05:25→09:45)
[2017-05-19 06:26] LABS: ANION GAP 14 (6-14); BLOOD UREA NITROGEN 82 mg/dL (8-26); CALCIUM 8.7 mg/dL (8.5-10.1); CARBON DIOXIDE 24 mmol/L (21-32); CHLORIDE 95 mmol/L (98-107); CREATININE 6.7 mg/dL (0.7-1.3); GFR 8.3; GLUCOSE 183 mg/dL (70-99); POTASSIUM 4.6 mmol/L (3.5-5.1); SODIUM 133 mmol/L (136-145)
[2017-05-19] MEDS ORDERED: ONDANSETRON PF 4 MG/2 ML VIAL. IV ×2 (07:00→14:15)
[2017-05-19] MEDS ORDERED: HYDROmorphone 2 MG/ML VIAL IV (07:00)
[2017-05-19] MEDS ORDERED: LIDOCAINE 1% PF 2 ML VIAL. ID (07:00)
[2017-05-19] MEDS ORDERED: fentaNYL PF VIAL 100 MCG/2 ML VIAL IV (07:00)
[2017-05-19] MEDS ORDERED: PROCHLORPERAZINE 10 MG/2 ML VIAL. IV (07:00)
[2017-05-19] MEDS: PANTOPRAZOLE 40 MG TABLET.DR. PO (07:30)
[2017-05-19] MEDS: CALCIUM ACETATE 667 MG CAPSULE PO ×3 (08:00→17:00)
[2017-05-19] MEDS: INSULIN ASPART 300 UNITS/3 ML INSULN.PEN SQ ×3 (08:00→16:28)
[2017-05-19] MEDS: MORPHINE SULFATE 2 MG/ML DISP.SYRIN. IV ×4 (08:14→21:41)
[2017-05-19] MEDS: LISINOPRIL 2.5 MG TABLET PO (09:00)
[2017-05-19] MEDS ORDERED: DIALYSIS PATIENT. MC ×2 (09:00→12:45)
[2017-05-19] MEDS: LINEZOLID 600 MG TABLET PO ×2 (09:00→21:40)
[2017-05-19] MEDS: REPAGLINIDE 0.5 MG TABLET PO (09:00)
[2017-05-19] MEDS: LACTOBACILLUS RHAMNOSUS GG 1 CAPSULE. PO ×2 (09:00→21:39)
[2017-05-19] MEDS: FOLIC/VIT B COMP W-C (RENAL) TABLET. PO (09:00)
[2017-05-19] MEDS: CINACALCET HCL 30 MG TABLET PO (09:00)
[2017-05-19] MEDS: METOPROLOL SUCC 24HR ER 50 MG TAB.ER.24H. PO (09:45)
[2017-05-19] MEDS ORDERED: IV NORMAL SALINE 1000ML BAG 1,000 ML IV ×2 (12:39)
[2017-05-19] MEDS ORDERED: diphenhydrAMINE 50 MG/ML VIAL IV ×2 (12:45)
[2017-05-19 15:19] LABS: ALBUMIN,CSF 396 mg/dL (11-48); ALBUMIN,SERUM 2.8 g/dL (3.6-4.8); CSF IGG INDEX 0.3 (0.0-0.7); IGG,SERUM 1046 mg/dL (700-1600)
[2017-05-19 16:26] LABS: POC GLUCOSE 120 mg/dL (70-99)
[2017-05-19] MEDS: MORPHINE SULFATE 4 MG/ML DISP.SYRIN. IV (16:26)
[2017-05-19 20:41] LABS: POC GLUCOSE 165 mg/dL (70-99)
[2017-05-19] MEDS: INSULIN DETEMIR 300 UNITS/3 ML INSULN.PEN. SQ (21:46)
[2017-05-20] MEDS: DEXAMETHASONE SOD PHOS 4 MG/ML VIAL IV ×3 (00:12→21:47)
[2017-05-20] MEDS: NORMAL SALINE IV ×6 (00:12→20:00)
[2017-05-20] MEDS: NAFCILLIN IV ×6 (00:12→20:00)
[2017-05-20] MEDS: MORPHINE SULFATE 4 MG/ML DISP.SYRIN. IV ×3 (00:13→21:51)
[2017-05-20] MEDS: IV NORMAL SALINE 1000ML BAG 1,000 ML IV ×2 (06:09→21:57)
[2017-05-20] MEDS: PANTOPRAZOLE 40 MG TABLET.DR. PO (06:10)
[2017-05-20] MEDS: INSULIN ASPART 300 UNITS/3 ML INSULN.PEN SQ ×3 (08:00→17:00)
[2017-05-20 08:28] LABS: POC GLUCOSE 150 mg/dL (70-99)
[2017-05-20] MEDS: CALCIUM ACETATE 667 MG CAPSULE PO ×3 (09:26→17:18)
[2017-05-20] MEDS: LISINOPRIL 2.5 MG TABLET PO (09:26)
[2017-05-20] MEDS: LINEZOLID 600 MG TABLET PO ×2 (09:27→21:46)
[2017-05-20] MEDS: FOLIC/VIT B COMP W-C (RENAL) TABLET. PO (09:27)
[2017-05-20] MEDS: REPAGLINIDE 0.5 MG TABLET PO (09:27)
[2017-05-20] MEDS: CINACALCET HCL 30 MG TABLET PO (09:27)
[2017-05-20] MEDS: LACTOBACILLUS RHAMNOSUS GG 1 CAPSULE. PO ×2 (09:28→21:46)
[2017-05-20] MEDS: METOPROLOL SUCC 24HR ER 50 MG TAB.ER.24H. PO (09:28)
[2017-05-20] MEDS: HEPARIN PF for SUB-Q USE 5,000 UNIT/0.5 ML VIAL. SQ ×3 (09:39→21:55)
[2017-05-20 12:12] LABS: POC GLUCOSE 189 mg/dL (70-99)
[2017-05-20] MEDS: oxyCODONE/APAP 5/325 1 TAB TABLET PO ×2 (12:41→17:25)
[2017-05-20] MEDS: fentaNYL PF VIAL 100 MCG/2 ML VIAL IV (15:57)
[2017-05-20 16:34] LABS: POC GLUCOSE 126 mg/dL (70-99)
[2017-05-20 20:21] LABS: POC GLUCOSE 132 mg/dL (70-99)
[2017-05-20] MEDS: INSULIN DETEMIR 300 UNITS/3 ML INSULN.PEN. SQ (21:56)
[2017-05-21] MEDS: NAFCILLIN IV ×6 (00:10→22:17)
[2017-05-21] MEDS: NORMAL SALINE IV ×6 (00:10→22:17)
[2017-05-21] MEDS: oxyCODONE/APAP 5/325 1 TAB TABLET PO ×3 (06:14→18:20)
[2017-05-21 06:18] LABS: BASO # 0.1 x10^3/uL (0.0-0.2); BASO % 1 % (0-3); EOS # 0.5 x10^3/uL (0.0-0.7); EOS % 3 % (0-3); HEMATOCRIT 27.9 % (39.0-53.0); HEMOGLOBIN 9.1 g/dL (13.0-17.5); LYMPH # 1.7 x10^3/uL (1.0-4.8); LYMPH % 10 % (24-48); MEAN CORPUSCULAR HEMOGLOBIN 32 pg (25-35); MEAN CORPUSCULAR HGB CONC 33 g/dL (31-37); MEAN CORPUSCULAR VOLUME 98 fL (79-100); MONO # 0.8 x10^3/uL (0.0-1.1); MONO % 5 % (0-9); NEUT % 83 % (31-73); PLATELET COUNT 334 x10^3/uL (140-400); RED BLOOD COUNT 2.85 x10^6/uL (4.30-5.70); RED CELL DISTRIBUTION WIDTH 15.6 % (11.5-14.5); WHITE BLOOD COUNT 18.1 x10^3/uL (4.0-11.0)
[2017-05-21] MEDS: HEPARIN PF for SUB-Q USE 5,000 UNIT/0.5 ML VIAL. SQ (06:18)
[2017-05-21 06:28] LABS: ADD MAN DIFF? YES
[2017-05-21 06:38] LABS: ANION GAP 14 (6-14); BLOOD UREA NITROGEN 77 mg/dL (8-26); CALCIUM 8.7 mg/dL (8.5-10.1); CARBON DIOXIDE 27 mmol/L (21-32); CHLORIDE 96 mmol/L (98-107); CREATININE 6.5 mg/dL (0.7-1.3); GFR 8.6; GLUCOSE 133 mg/dL (70-99); POTASSIUM 4.3 mmol/L (3.5-5.1); SODIUM 137 mmol/L (136-145)
[2017-05-21 07:01] LABS: % BANDS 2 % (0-9); % EOS 1 % (0-5); % LYMPHS 21 % (24-48); % MONOS 3 % (0-10); % SEGS 73 % (35-66); PLT ESTIMATE ADEQUATE (ADEQUATE)
[2017-05-21] MEDS: CINACALCET HCL 30 MG TABLET PO (07:29)
[2017-05-21] MEDS: REPAGLINIDE 0.5 MG TABLET PO (07:29)
[2017-05-21] MEDS: LINEZOLID 600 MG TABLET PO (07:30)
[2017-05-21] MEDS: CALCIUM ACETATE 667 MG CAPSULE PO ×3 (07:30→17:00)
[2017-05-21] MEDS: FOLIC/VIT B COMP W-C (RENAL) TABLET. PO (07:30)
[2017-05-21] MEDS: LACTOBACILLUS RHAMNOSUS GG 1 CAPSULE. PO ×2 (07:30→22:16)
[2017-05-21] MEDS: DEXAMETHASONE SOD PHOS 4 MG/ML VIAL IV ×2 (07:31→22:15)
[2017-05-21] MEDS: PANTOPRAZOLE 40 MG TABLET.DR. PO (07:31)
[2017-05-21] MEDS: LISINOPRIL 2.5 MG TABLET PO (07:31)
[2017-05-21] MEDS: METOPROLOL SUCC 24HR ER 50 MG TAB.ER.24H. PO (07:35)
[2017-05-21] MEDS: INSULIN ASPART 300 UNITS/3 ML INSULN.PEN SQ ×3 (07:41→17:00)
[2017-05-21 08:14] LABS: POC GLUCOSE 118 mg/dL (70-99)
[2017-05-21] MEDS: IV NORMAL SALINE 1000ML BAG 1,000 ML IV (09:20)
[2017-05-21 12:13] LABS: POC GLUCOSE 124 mg/dL (70-99)
[2017-05-21] MEDS: POLYETHYLENE GLYCOL 3350 17 GM PACKET. PO ×2 (13:49→21:00)
[2017-05-21] MEDS ORDERED: BISACODYL 10 MG SUPP.RECT. PR (15:45)
[2017-05-21 17:00] LABS: POC GLUCOSE 111 mg/dL (70-99)
[2017-05-21] MEDS ORDERED: IV NORMAL SALINE 1000ML BAG 1,000 ML IV (18:41)
[2017-05-21] MEDS ORDERED: DIALYSIS PATIENT. MC (18:45)
[2017-05-21 21:54] LABS: POC GLUCOSE 93 mg/dL (70-99)
[2017-05-21] MEDS: MORPHINE SULFATE 4 MG/ML DISP.SYRIN. IV (22:13)
[2017-05-21] MEDS: INSULIN DETEMIR 300 UNITS/3 ML INSULN.PEN. SQ (22:44)
[2017-05-22] MEDS: oxyCODONE/APAP 5/325 1 TAB TABLET PO ×5 (00:30→23:21)
[2017-05-22] MEDS: NORMAL SALINE IV ×6 (00:31→20:40)
[2017-05-22] MEDS: NAFCILLIN IV ×6 (00:31→20:40)
[2017-05-22 05:05] LABS: ADD MAN DIFF? NO
[2017-05-22 05:10] LABS: BASO # 0.1 x10^3/uL (0.0-0.2); BASO % 1 % (0-3); EOS # 0.4 x10^3/uL (0.0-0.7); EOS % 2 % (0-3); HEMATOCRIT 27.5 % (39.0-53.0); HEMOGLOBIN 9.1 g/dL (13.0-17.5); LYMPH # 1.8 x10^3/uL (1.0-4.8); LYMPH % 10 % (24-48); MEAN CORPUSCULAR HEMOGLOBIN 32 pg (25-35); MEAN CORPUSCULAR HGB CONC 33 g/dL (31-37); MEAN CORPUSCULAR VOLUME 97 fL (79-100); MONO # 0.8 x10^3/uL (0.0-1.1); MONO % 4 % (0-9); NEUT # 15.9 x10^3uL (1.8-7.7); NEUT % 83 % (31-73); PLATELET COUNT 343 x10^3/uL (140-400); RED BLOOD COUNT 2.84 x10^6/uL (4.30-5.70); RED CELL DISTRIBUTION WIDTH 15.3 % (11.5-14.5)
[2017-05-22 05:24] LABS: ANION GAP 12 (6-14); BLOOD UREA NITROGEN 52 mg/dL (8-26); CALCIUM 8.4 mg/dL (8.5-10.1); CARBON DIOXIDE 29 mmol/L (21-32); CHLORIDE 97 mmol/L (98-107); GFR 11.6; GLUCOSE 115 mg/dL (70-99); POTASSIUM 4.1 mmol/L (3.5-5.1); SODIUM 138 mmol/L (136-145)
[2017-05-22 07:47] LABS: POC GLUCOSE 102 mg/dL (70-99)
[2017-05-22] MEDS: LACTOBACILLUS RHAMNOSUS GG 1 CAPSULE. PO ×2 (07:55→20:40)
[2017-05-22] MEDS: PANTOPRAZOLE 40 MG TABLET.DR. PO (07:55)
[2017-05-22] MEDS: REPAGLINIDE 0.5 MG TABLET PO (07:55)
[2017-05-22] MEDS: FOLIC/VIT B COMP W-C (RENAL) TABLET. PO (07:55)
[2017-05-22] MEDS: CALCIUM ACETATE 667 MG CAPSULE PO ×3 (07:55→17:00)
[2017-05-22] MEDS: INSULIN ASPART 300 UNITS/3 ML INSULN.PEN SQ ×3 (07:56→17:00)
[2017-05-22] MEDS: CINACALCET HCL 30 MG TABLET PO (07:56)
[2017-05-22] MEDS: DEXAMETHASONE SOD PHOS 4 MG/ML VIAL IV ×2 (07:56→20:40)
[2017-05-22] MEDS: POLYETHYLENE GLYCOL 3350 17 GM PACKET. PO ×2 (07:57→20:50)
[2017-05-22] MEDS: LISINOPRIL 2.5 MG TABLET PO (07:57)
[2017-05-22] MEDS: METOPROLOL SUCC 24HR ER 50 MG TAB.ER.24H. PO (07:57)
[2017-05-22] MEDS ORDERED: IV NORMAL SALINE 1000ML BAG 1,000 ML IV ×2 (12:35)
[2017-05-22] MEDS ORDERED: DIALYSIS PATIENT. MC ×2 (12:45)
[2017-05-22] MEDS: INSULIN DETEMIR 300 UNITS/3 ML INSULN.PEN. SQ (20:47)
[2017-05-22 21:10] LABS: POC GLUCOSE 85 mg/dL (70-99)
[2017-05-22 21:10] LABS: POC GLUCOSE 83 mg/dL (70-99)
[2017-05-23 04:28] LABS: ADD MAN DIFF? NO
[2017-05-23] MEDS: NAFCILLIN IV ×7 (04:40→23:59)
[2017-05-23] MEDS: NORMAL SALINE IV ×7 (04:40→23:59)
[2017-05-23 04:42] LABS: BASO # 0.1 x10^3/uL (0.0-0.2); BASO % 1 % (0-3); EOS # 0.5 x10^3/uL (0.0-0.7); EOS % 3 % (0-3); HEMATOCRIT 25.1 % (39.0-53.0); HEMOGLOBIN 8.3 g/dL (13.0-17.5); LYMPH # 2.3 x10^3/uL (1.0-4.8); LYMPH % 13 % (24-48); MEAN CORPUSCULAR HEMOGLOBIN 32 pg (25-35); MEAN CORPUSCULAR HGB CONC 33 g/dL (31-37); MEAN CORPUSCULAR VOLUME 97 fL (79-100); MONO % 5 % (0-9); NEUT # 13.8 x10^3uL (1.8-7.7); NEUT % 78 % (31-73); PLATELET COUNT 354 x10^3/uL (140-400); RED BLOOD COUNT 2.58 x10^6/uL (4.30-5.70); RED CELL DISTRIBUTION WIDTH 15.4 % (11.5-14.5); WHITE BLOOD COUNT 17.7 x10^3/uL (4.0-11.0)
[2017-05-23 05:20] LABS: ANION GAP 12 (6-14); BLOOD UREA NITROGEN 51 mg/dL (8-26); CALCIUM 8.6 mg/dL (8.5-10.1); CARBON DIOXIDE 28 mmol/L (21-32); CHLORIDE 97 mmol/L (98-107); CREATININE 5.3 mg/dL (0.7-1.3); GFR 10.8; GLUCOSE 87 mg/dL (70-99); POTASSIUM 4.2 mmol/L (3.5-5.1); SODIUM 137 mmol/L (136-145)
[2017-05-23] MEDS: INSULIN ASPART 300 UNITS/3 ML INSULN.PEN SQ ×3 (08:00→17:00)
[2017-05-23 08:04] LABS: POC GLUCOSE 86 mg/dL (70-99)
[2017-05-23] MEDS: oxyCODONE/APAP 5/325 1 TAB TABLET PO ×4 (08:34→23:58)
[2017-05-23] MEDS: FOLIC/VIT B COMP W-C (RENAL) TABLET. PO (08:35)
[2017-05-23] MEDS: LISINOPRIL 2.5 MG TABLET PO (08:35)
[2017-05-23] MEDS: REPAGLINIDE 0.5 MG TABLET PO (08:35)
[2017-05-23] MEDS: LACTOBACILLUS RHAMNOSUS GG 1 CAPSULE. PO ×2 (08:35→20:15)
[2017-05-23] MEDS: CINACALCET HCL 30 MG TABLET PO (08:36)
[2017-05-23] MEDS: CALCIUM ACETATE 667 MG CAPSULE PO ×3 (08:36→16:50)
[2017-05-23] MEDS: PANTOPRAZOLE 40 MG TABLET.DR. PO (08:36)
[2017-05-23] MEDS: METOPROLOL SUCC 24HR ER 50 MG TAB.ER.24H. PO (08:36)
[2017-05-23] MEDS: POLYETHYLENE GLYCOL 3350 17 GM PACKET. PO ×2 (08:37→20:16)
[2017-05-23 12:09] LABS: POC GLUCOSE 93 mg/dL (70-99)
[2017-05-23 17:51] LABS: POC GLUCOSE 92 mg/dL (70-99)
[2017-05-23] MEDS: INSULIN DETEMIR 300 UNITS/3 ML INSULN.PEN. SQ ×2 (21:00→21:45)
[2017-05-23 21:06] LABS: POC GLUCOSE 84 mg/dL (70-99)
[2017-05-24] MEDS: oxyCODONE/APAP 5/325 1 TAB TABLET PO ×3 (03:53→13:56)
[2017-05-24] MEDS: NORMAL SALINE IV ×4 (03:54→16:00)
[2017-05-24] MEDS: NAFCILLIN IV ×4 (03:54→16:00)
[2017-05-24 04:10] LABS: ADD MAN DIFF? NO
[2017-05-24 05:00] LABS: BASO # 0.2 x10^3/uL (0.0-0.2); BASO % 1 % (0-3); EOS # 0.5 x10^3/uL (0.0-0.7); EOS % 4 % (0-3); HEMATOCRIT 26.4 % (39.0-53.0); HEMOGLOBIN 8.9 g/dL (13.0-17.5); LYMPH % 13 % (24-48); MEAN CORPUSCULAR HEMOGLOBIN 33 pg (25-35); MEAN CORPUSCULAR HGB CONC 34 g/dL (31-37); MEAN CORPUSCULAR VOLUME 98 fL (79-100); MONO # 0.9 x10^3/uL (0.0-1.1); MONO % 6 % (0-9); NEUT % 77 % (31-73); PLATELET COUNT 345 x10^3/uL (140-400); RED BLOOD COUNT 2.71 x10^6/uL (4.30-5.70); RED CELL DISTRIBUTION WIDTH 15.9 % (11.5-14.5); WHITE BLOOD COUNT 15.6 x10^3/uL (4.0-11.0)
[2017-05-24 05:19] LABS: ANION GAP 14 (6-14); BLOOD UREA NITROGEN 61 mg/dL (8-26); CALCIUM 8.7 mg/dL (8.5-10.1); CARBON DIOXIDE 26 mmol/L (21-32); CHLORIDE 97 mmol/L (98-107); CREATININE 6.3 mg/dL (0.7-1.3); GFR 8.9; GLUCOSE 96 mg/dL (70-99); POTASSIUM 4.2 mmol/L (3.5-5.1); SODIUM 137 mmol/L (136-145)
[2017-05-24] MEDS: PANTOPRAZOLE 40 MG TABLET.DR. PO (07:30)
[2017-05-24] MEDS: INSULIN ASPART 300 UNITS/3 ML INSULN.PEN SQ ×3 (08:00→17:00)
[2017-05-24] MEDS: CALCIUM ACETATE 667 MG CAPSULE PO ×3 (08:00→17:00)
[2017-05-24 08:28] LABS: POC GLUCOSE 73 mg/dL (70-99)
[2017-05-24] MEDS: POLYETHYLENE GLYCOL 3350 17 GM PACKET. PO (09:00)
[2017-05-24] MEDS: FOLIC/VIT B COMP W-C (RENAL) TABLET. PO (09:00)
[2017-05-24] MEDS: METOPROLOL SUCC 24HR ER 50 MG TAB.ER.24H. PO (09:00)
[2017-05-24] MEDS: LACTOBACILLUS RHAMNOSUS GG 1 CAPSULE. PO (09:00)
[2017-05-24] MEDS: REPAGLINIDE 0.5 MG TABLET PO (09:00)
[2017-05-24] MEDS: CINACALCET HCL 30 MG TABLET PO (09:00)
[2017-05-24] MEDS: LISINOPRIL 2.5 MG TABLET PO (09:00)
[2017-05-24] MEDS ORDERED: IV NORMAL SALINE 1000ML BAG 1,000 ML IV ×2 (09:59)
[2017-05-24] MEDS ORDERED: diphenhydrAMINE 50 MG/ML VIAL IV ×2 (10:00)
[2017-05-24] MEDS ORDERED: DIALYSIS PATIENT. MC (10:00)
[2017-05-24 13:12] LABS: POC GLUCOSE 84 mg/dL (70-99)
[2017-05-24] MEDS: HEPARIN PF for SUB-Q USE 5,000 UNIT/0.5 ML VIAL. SQ (14:36)
[2017-05-24 17:10] LABS: POC GLUCOSE 98 mg/dL (70-99)
== END 2017-05-24 17:23 | DRG 853 ==
LOC: 1 WEST ICU 05-14 15:00 → 4 NORTH 05-19 14:36 → 5 SOUTH 13:04 → 1 WEST ICU 05-18 14:13 → 4 NORTH 05-19 16:50
PROVIDERS: Internal Medicine
PROC: 00NX0ZZ Release Thoracic Spinal Cord, Open Approach (ICD-10-PCS; principal; 2017-05-18 11:00)
PROC: 009U00Z Drainage of Spinal Canal with Drainage Device, Open Approach (ICD-10-PCS; 2017-05-18 11:00)
PROC: 4A11X4G Monitoring of Peripheral Nervous Electrical Activity, Intraoperative, External Approach (ICD-10-PCS; 2017-05-18 11:00)
PROC: B246ZZ4 Ultrasonography of Right and Left Heart, Transesophageal (ICD-10-PCS; 2017-05-18 11:39)
PROC: 5A1D70Z Performance of Urinary Filtration, Intermittent, Less than 6 Hours Per Day (ICD-10-PCS; 2017-05-18 11:39)
PROC: 5A1D70Z Performance of Urinary Filtration, Intermittent, Less than 6 Hours Per Day (ICD-10-PCS; 2017-05-18 11:39)
PROC: 5A1D70Z Performance of Urinary Filtration, Intermittent, Less than 6 Hours Per Day (ICD-10-PCS; 2017-05-18 11:39)
PROC: 5A1D70Z Performance of Urinary Filtration, Intermittent, Less than 6 Hours Per Day (ICD-10-PCS; 2017-05-18 11:39)
PROC: 5A1D70Z Performance of Urinary Filtration, Intermittent, Less than 6 Hours Per Day (ICD-10-PCS; 2017-05-18 11:39)
PROC: 5A1D70Z Performance of Urinary Filtration, Intermittent, Less than 6 Hours Per Day (ICD-10-PCS; 2017-05-18 11:39)
PROC: 5A1D70Z Performance of Urinary Filtration, Intermittent, Less than 6 Hours Per Day (ICD-10-PCS; 2017-05-18 11:39)
PROC: 5A1D70Z Performance of Urinary Filtration, Intermittent, Less than 6 Hours Per Day (ICD-10-PCS; 2017-05-18 11:39)
PROC: 02HV33Z Insertion of Infusion Device into Superior Vena Cava, Percutaneous Approach (ICD-10-PCS; 2017-05-18 11:39)
DX: A41.02 Sepsis due to Methicillin resistant Staphylococcus aureus (principal); G06.1 Intraspinal abscess and granuloma; G93.41 Metabolic encephalopathy; I13.2 Hypertensive heart and chronic kidney disease with heart failure and with stage 5 chronic kidney disease, or end stage renal disease; G95.19 Other vascular myelopathies; I42.9 Cardiomyopathy, unspecified; E83.42 Hypomagnesemia; N18.6 End stage renal disease; I50.43 Acute on chronic combined systolic (congestive) and diastolic (congestive) heart failure; E87.1 Hypo-osmolality and hyponatremia; G82.20 Paraplegia, unspecified; E11.22 Type 2 diabetes mellitus with diabetic chronic kidney disease; E11.42 Type 2 diabetes mellitus with diabetic polyneuropathy; E87.70 Fluid overload, unspecified; I48.2 Chronic atrial fibrillation; F14.90 Cocaine use, unspecified, uncomplicated; E87.6 Hypokalemia; E78.5 Hyperlipidemia, unspecified; E87.8 Other disorders of electrolyte and fluid balance, not elsewhere classified; D63.1 Anemia in chronic kidney disease; E03.9 Hypothyroidism, unspecified; J44.9 Chronic obstructive pulmonary disease, unspecified; M19.90 Unspecified osteoarthritis, unspecified site; F43.22 Adjustment disorder with anxiety; H54.61 Unqualified visual loss, right eye, normal vision left eye; E66.09 Other obesity due to excess calories; K52.9 Noninfective gastroenteritis and colitis, unspecified; K80.20 Calculus of gallbladder without cholecystitis without obstruction; K21.9 Gastro-esophageal reflux disease without esophagitis; M48.061 Spinal stenosis, lumbar region without neurogenic claudication; L97.529 Non-pressure chronic ulcer of other part of left foot with unspecified severity; E11.621 Type 2 diabetes mellitus with foot ulcer; K27.9 Peptic ulcer, site unspecified, unspecified as acute or chronic, without hemorrhage or perforation; I25.10 Atherosclerotic heart disease of native coronary artery without angina pectoris; K59.00 Constipation, unspecified; K76.0 Fatty (change of) liver, not elsewhere classified; Z91.15 Patient's noncompliance with renal dialysis; Z83.3 Family history of diabetes mellitus; Z87.11 Personal history of peptic ulcer disease; Z99.2 Dependence on renal dialysis; Z95.810 Presence of automatic (implantable) cardiac defibrillator; Z87.891 Personal history of nicotine dependence; Z82.49 Family history of ischemic heart disease and other diseases of the circulatory system; Z91.19 Patient's noncompliance with other medical treatment and regimen; Z79.01 Long term (current) use of anticoagulants
CPT/HCPCS: 36415; 70450; 71010; 71275; 72128; 72129; 72131; 72132; 72270; 73140; 73630; 74175; 76000; 76700; 76882; 78806; 80048; 80053; 80061; 80069; 80076; 80202; 82140; 82607; 82746; 82787; 82945; 82962; 83036; 83735; 83916; 84100; 84157; 84165; 84443; 85007; 85018; 85025; 85651; 86038; 87040; 87071; 87075; 87102; 87116; 87186; 87205; 87641; 88304; 88311; 89051; 93306; 93312; 96374; 97161-GP; 97164; 97167-GO; 97530-GO; 97530-GP; A9570; J1100; J1170; J1815; J1885; J2250; J2270; J2370; J2405; J2543; J2704; J3010; J3370; J3490; J7030; J7060; J7120; Q9967; S0028

== ENCOUNTER 2017-07-13 10:08 | Outpatient (CLI) | payer MEDICARE, MEDICAID ==
[2017-07-13 10:37] LABS: ADD MAN DIFF? NO
[2017-07-13 10:41] LABS: BASO # 0.1 x10^3/uL (0.0-0.2); BASO % 2 % (0-3); EOS # 0.4 x10^3/uL (0.0-0.7); EOS % 6 % (0-3); HEMATOCRIT 28.2 % (39.0-53.0); HEMOGLOBIN 9.4 g/dL (13.0-17.5); LYMPH # 1.4 x10^3/uL (1.0-4.8); LYMPH % 20 % (24-48); MEAN CORPUSCULAR HEMOGLOBIN 31 pg (25-35); MEAN CORPUSCULAR HGB CONC 33 g/dL (31-37); MEAN CORPUSCULAR VOLUME 92 fL (79-100); MONO # 0.6 x10^3/uL (0.0-1.1); MONO % 9 % (0-9); NEUT # 4.5 x10^3uL (1.8-7.7); NEUT % 64 % (31-73); PLATELET COUNT 312 x10^3/uL (140-400); RED BLOOD COUNT 3.07 x10^6/uL (4.30-5.70); RED CELL DISTRIBUTION WIDTH 15.5 % (11.5-14.5); WHITE BLOOD COUNT 6.9 x10^3/uL (4.0-11.0)
[2017-07-13 10:48] LABS: ANION GAP 4 (6-14); BLOOD UREA NITROGEN 37 mg/dL (8-26); CALCIUM 8.9 mg/dL (8.5-10.1); CARBON DIOXIDE 36 mmol/L (21-32); CHLORIDE 95 mmol/L (98-107); CREATININE 5.5 mg/dL (0.7-1.3); GFR 10.4; GLUCOSE 95 mg/dL (70-99); SODIUM 135 mmol/L (136-145)
[2017-07-13 10:50] LABS: INR 1.3 (0.8-1.1); PROTHROMBIN TIME PATIENT 15.2 SEC (11.7-14.0)
[2017-07-13] MEDS ORDERED: LIDOCAINE WITH 8.4% SOD BICARB 3 ML DISP.SYRIN. ×2 (11:43)
[2017-07-13] MEDS ORDERED: IODIXANOL 320 MG/ML 100 ML VIAL. ×2 (11:43)
[2017-07-13] MEDS ORDERED: fentaNYL PF VIAL 100 MCG/2 ML VIAL ×2 (14:39)
[2017-07-13] MEDS ORDERED: MIDAZOLAM HCL/PF 2 MG/2 ML VIAL. ×2 (14:39)
[2017-07-13] MEDS ORDERED: HEPARIN for IV BOLUS 10,000 UNIT/10 ML VIAL. ×2 (14:39)
[2017-07-13] MEDS: IODIXANOL 320 MG/ML 100 ML VIAL. IART ×2 (15:16)
[2017-07-13] MEDS: fentaNYL PF VIAL 100 MCG/2 ML VIAL IV ×2 (15:17)
[2017-07-13] MEDS: LIDOCAINE WITH 8.4% SOD BICARB 3 ML DISP.SYRIN. IJ ×2 (15:17)
[2017-07-13] MEDS: MIDAZOLAM HCL/PF 2 MG/2 ML VIAL. IV ×2 (15:17)
== END 2017-07-13 17:26 ==
LOC: INTRAD 10:08
DX: I13.2 Hypertensive heart and chronic kidney disease with heart failure and with stage 5 chronic kidney disease, or end stage renal disease (principal); E11.22 Type 2 diabetes mellitus with diabetic chronic kidney disease; N18.6 End stage renal disease; I50.9 Heart failure, unspecified; E78.00 Pure hypercholesterolemia, unspecified; I48.91 Unspecified atrial fibrillation; F41.9 Anxiety disorder, unspecified; F17.200 Nicotine dependence, unspecified, uncomplicated; D64.9 Anemia, unspecified; Z99.2 Dependence on renal dialysis; Z86.39 Personal history of other endocrine, nutritional and metabolic disease
CPT/HCPCS: 36415; 36901; 76937; 80048; 85025; 85610; 99152; 99153; C1769; C1892; J1644; J2250; J3010

== ENCOUNTER 2019-05-27 21:57 | Inpatient (IN) | payer MEDICARE, OTHER ==
[~2019-05-27] VITALS: Ht 182.9 cm; Wt 118.1 kg
[~2019-05-27 21:57] MED LIST: AMLO1TAB95 PO; AMOX500T PO; APIX5TAB PO; CALC667C6 PO; CALC667T4 PO; CINA30TA2 PO; CLAR500T3 PO; CRESTOR10 MG PO; FERR325T14 PO; FOLI0.8T3 PO; HYDR-2769 PO; HYDR-3135 PO; LISI2.5T PO; METH-184 PO; METH4TAB2 PO; METO-239 PO; MUPI22OI2 TP; NATE120T2 PO; OLME20TA17 PO; OMEP20CA16 PO; PROP10TA PO; TIOT18CA IH; TORS20TA2 PO; WARF-31 PO; WARF3TAB54 PO
[2019-05-27 22:41] LABS: BILIRUBIN,URINE NEGATIVE (NEG); CLARITY,URINE CLOUDY; COLOR,URINE RED; NITRITE,URINE NEGATIVE (NEG); PH,URINE 8.5; PROTEIN,URINE >=300 mg/dL (NEG-TRACE); UROBILINOGEN,URINE 0.2 mg/dL (0.2 mg/dL)
[2019-05-27 22:51] LABS: RBC,URINE TNTC /HPF (0-2)
[2019-05-27 22:52] LABS: WBC,URINE 20-40 /HPF (0-4)
--- NOTE | 2019-05-27 22:52 | RAD ---
CT abdomen and pelvis without contrast. HISTORY: Hematuria CT scan the abdomen pelvis was done without contrast. Lung bases are clear. There is no effusion. A liver lesion is not identified. There are multiple calcified gallstones in the gallbladder. Spleen and adrenal glands are normal. A pancreatic lesion is not identified. There is no retroperitoneal adenopathy. There is extensive vascular calcification at the renal arteries. There is a 1.5 cm lesion the medial left kidney would with a CT number slightly too high for a normal cyst. Complicated cyst or small mass is possible. There is a lesion at the lower pole of the right kidney with a similar CT number too high for a simple cyst. Lesion the left right kidney measures 2.6 cm. Ultrasound could be of benefit or follow-up. There is no bowel obstruction. Appendix is normal. There is marked thickening of the bladder wall. There is slight formation surrounding the bladder cystitis is possible. There is degenerative change in the lumbar spine. There is spinal stenosis at L4-5. IMPRESSION: 1. Renal lesions which are not simple cysts, ultrasound would be of benefit. 2. Cholelithiasis. 3. Thickening of the bladder wall. 4. Spinal stenosis in the lower spinal canal. PQRS Compliance Statement: One or more of the following individualized dose reduction techniques were utilized for this examination: 1. Automated exposure control 2. Adjustment of the mA and/or kV according to patient size 3. Use of iterative reconstruction technique Electronically signed by: Angelito Lima MD (05/27/2019 10:49 PM) [facility]
[2019-05-27 23:00] LABS: BACTERIA,URINE 0 /HPF (0-FEW)
[2019-05-27 23:01] LABS: SQUAMOUS EPITHELIAL CELL,UR OCC /LPF
[2019-05-27 23:06] LABS: BASO # 0.1 x10^3/uL (0.0-0.2); BASO % 1 % (0-3); EOS # 0.4 x10^3/uL (0.0-0.7); EOS % 3 % (0-3); HEMATOCRIT 32.2 % (39.0-53.0); HEMOGLOBIN 10.8 g/dL (13.0-17.5); LYMPH # 1.4 x10^3/uL (1.0-4.8); LYMPH % 9 % (24-48); MEAN CORPUSCULAR HEMOGLOBIN 34 pg (25-35); MEAN CORPUSCULAR HGB CONC 34 g/dL (31-37); MEAN CORPUSCULAR VOLUME 101 fL (79-100); MONO # 1.1 x10^3/uL (0.0-1.1); MONO % 7 % (0-9); NEUT # 12.9 x10^3/uL (1.8-7.7); NEUT % 81 % (31-73); PLATELET COUNT 275 x10^3/uL (140-400); RED BLOOD COUNT 3.21 x10^6/uL (4.30-5.70); RED CELL DISTRIBUTION WIDTH 15.8 % (11.5-14.5); WHITE BLOOD COUNT 15.9 x10^3/uL (4.0-11.0)
[2019-05-27 23:19] LABS: ALBUMIN 3.4 g/dL (3.4-5.0); ALBUMIN/GLOBULIN RATIO 0.8 (1.0-1.7); CALCIUM 9.3 mg/dL (8.5-10.1); CREATININE 9.3 mg/dL (0.7-1.3); GFR 5.6; TOTAL BILIRUBIN 0.5 mg/dL (0.2-1.0); TOTAL PROTEIN 7.5 g/dL (6.4-8.2)
[2019-05-27 23:22] LABS: POTASSIUM 6.4 mmol/L (3.5-5.1)
[2019-05-27 23:49] LABS: % BANDS 1 % (0-9); % BASOS 1 % (0-3); % EOS 1 % (0-5); % LYMPHS 8 % (24-48); % MONOS 5 % (0-10); % SEGS 84 % (35-66); PLT ESTIMATE ADEQUATE (ADEQUATE)
--- NOTE | 2019-05-28 00:55 | PHYS DOC ---
Past Medical History Past Medical History: A-Fib, COPD, High Cholesterol, Heart Disease, Kidney Stone, Renal Failure Additional Past Medical Histor: KIDNEY FAILURE (JUDE MCWILLIAMS APRN) Past Surgical History: Other Additional Past Surgical Histo: VAS CATH,PACER (JUDE MCWILLIAMS APRN) Alcohol Use: None Drug Use: None (JUDE MCWILLIAMS APRN) Attending Signature I have participated in the care of this patient and I have reviewed and agree with all pertinent clinical information above including history, exam, and recommendations. (LEILANI HUDDLESTON MD) Adult General Chief Complaint Chief Complaint: BLOOD IN URINE HPI HPI Patient is a 68 year old male with history of chronic A. fib, high cholesterol, COPD, end-stage kidney disease on dialysis Monday was the Monday last dialyzed Monday, reports he didn't feel well to go to dialysis today who presents to the ED today complaining of hematuria that began yesterday. Patient denies any abdominal pain, nausea vomiting. (JUDE MCWILLIAMS APRN) Review of Systems Review of Systems Constitutional: Denies fever or chills [] Eyes: Denies change in visual acuity, redness, or eye pain [] HENT: Denies nasal congestion or sore throat [] Respiratory: Denies cough or shortness of breath [] Cardiovascular: No additional information not addressed in HPI [] GI: Denies abdominal pain, nausea, vomiting, bloody stools or diarrhea [] : Reports hematuria Musculoskeletal: Denies back pain or joint pain [] Integument: Denies rash or skin lesions [] Neurologic: Denies headache, focal weakness or sensory changes [] Endocrine: As stated kidney disease All other systems were reviewed and found to be within normal limits, except as documented in this note. (JUDE MCWILLIAMS APRN) Allergies Allergies Allergies Coded Allergies Type Severity Reaction Last Updated Verified No Known Drug Allergies 12/24/15 No (LEILANI HUDDLESTON MD) Physical Exam Physical Exam Constitutional: Obese patient, no acute distress, non-toxic appearance. [] HENT: Normocephalic, atraumatic, bilateral external ears normal, oropharynx moist, no oral exudates, nose normal. [] Eyes: PERRLA, EOMI, conjunctiva normal, no discharge. [] Neck: Normal range of motion, no tenderness, supple, no stridor. [] Cardiovascular: Irregular heartbeat Lungs & Thorax: Bilateral breath sounds clear to auscultation [] Abdomen: Bowel sounds normal, soft, no tenderness, no masses, no pulsatile masses. [] Skin: Warm, dry, no erythema, no rash. [] Back: No tenderness, no CVA tenderness. [] Extremities: No tenderness, no cyanosis, no clubbing, ROM intact, no edema. [] Neurologic: Alert and oriented X 3, normal motor function, normal sensory function, no focal deficits noted. [] Psychologic: Affect normal, judgement normal, mood normal. [] (JUDE MCWILLIAMS APRN) Current Patient Data Vital Signs Vital Signs Date Time Temp Pulse Resp B/P (MAP) Pulse Ox O2 Delivery O2 Flow Rate FiO2 05/27/19 23:31 96 20 126/59 (81) 96 Room Air 05/27/19 22:00 98.0 98.0 (LEILANI HUDDLESTON MD) Lab Values Laboratory Tests Test 05/27/19 22:30 05/27/19 22:55 Urine Collection Type Unknown Urine Color Red Urine Clarity Cloudy Urine pH 8.5 Urine Specific [place] 1.015 Urine Protein >=300 mg/dL (NEG-TRACE) Urine Glucose (UA) Negative mg/dL (NEG) Urine Ketones (Stick) Negative mg/dL (NEG) Urine Blood Large (NEG) Urine Nitrite Negative (NEG) Urine Bilirubin Negative (NEG) Urine Urobilinogen Dipstick 0.2 mg/dL (0.2 mg/dL) Urine Leukocyte Esterase Moderate (NEG) Urine RBC Tntc /HPF (0-2) Urine WBC 20-40 /HPF (0-4) Urine Squamous Epithelial Cells Occ /LPF Urine Bacteria 0 /HPF (0-FEW) White Blood Count 15.9 x10^3/uL (4.0-11.0) H Red Blood Count 3.21 x10^6/uL (4.30-5.70) L Hemoglobin 10.8 g/dL (13.0-17.5) L Hematocrit 32.2 % (39.0-53.0) L Mean Corpuscular Volume 101 fL (79-100) H Mean Corpuscular Hemoglobin 34 pg (25-35) Mean Corpuscular Hemoglobin Concent 34 g/dL (31-37) Red Cell Distribution Width 15.8 % (11.5-14.5) H Platelet Count 275 x10^3/uL (140-400) Neutrophils (%) (Auto) 81 % (31-73) H Lymphocytes (%) (Auto) 9 % (24-48) L Monocytes (%) (Auto) 7 % (0-9) Eosinophils (%) (Auto) 3 % (0-3) Basophils (%) (Auto) 1 % (0-3) Neutrophils # (Auto) 12.9 x10^3/uL (1.8-7.7) H Lymphocytes # (Auto) 1.4 x10^3/uL (1.0-4.8) Monocytes # (Auto) 1.1 x10^3/uL (0.0-1.1) Eosinophils # (Auto) 0.4 x10^3/uL (0.0-0.7) Basophils # (Auto) 0.1 x10^3/uL (0.0-0.2) Segmented Neutrophils % 84 % (35-66) H Band Neutrophils % 1 % (0-9) Lymphocytes % 8 % (24-48) L Monocytes % 5 % (0-10) Eosinophils % 1 % (0-5) Basophils % 1 % (0-3) Platelet Estimate Adequate (ADEQUATE) Sodium Level 131 mmol/L (136-145) L Potassium Level 6.4 mmol/L (3.5-5.1) *H Chloride Level 94 mmol/L (98-107) L Carbon Dioxide Level 30 mmol/L (21-32) Anion Gap 7 (6-14) Blood Urea Nitrogen 65 mg/dL (8-26) H Creatinine 9.3 mg/dL (0.7-1.3) H Estimated GFR (Cockcroft-Gault) 5.6 BUN/Creatinine Ratio 7 (6-20) Glucose Level 142 mg/dL (70-99) H Calcium Level 9.3 mg/dL (8.5-10.1) Total Bilirubin 0.5 mg/dL (0.2-1.0) Aspartate Amino Transferase (AST) 15 U/L (15-37) Alanine Aminotransferase (ALT) 11 U/L (16-63) L Alkaline Phosphatase 81 U/L (46-116) Total Protein 7.5 g/dL (6.4-8.2) Albumin 3.4 g/dL (3.4-5.0) Albumin/Globulin Ratio 0.8 (1.0-1.7) L Laboratory Tests 05/27/19 22:55 Laboratory Tests 05/27/19 22:55 (LEILANI HUDDLESTON MD) EKG EKG [] (JUDE MCWILLIAMS APRN) Radiology/Procedures Radiology/Procedures []PROCEDURE: CT ABDOMEN PELVIS WO CONTRAST CT abdomen and pelvis without contrast. HISTORY: Hematuria CT scan the abdomen pelvis was done without contrast. Lung bases are clear. There is no effusion. A liver lesion is not identified. There are multiple calcified gallstones in the gallbladder. Spleen and adrenal glands are normal. A pancreatic lesion is not identified. There is no retroperitoneal adenopathy. There is extensive vascular calcification at the renal arteries. There is a 1.5 cm lesion the medial left kidney would with a CT number slightly too high for a normal cyst. Complicated cyst or small mass is possible. There is a lesion at the lower pole of the right kidney with a similar CT number too high for a simple cyst. Lesion the left right kidney measures 2.6 cm. Ultrasound could be of benefit or follow-up. There is no bowel obstruction. Appendix is normal. There is marked thickening of the bladder wall. There is slight formation surrounding the bladder cystitis is possible. There is degenerative change in the lumbar spine. There is spinal stenosis at L4-5. IMPRESSION: 1. Renal lesions which are not simple cysts, ultrasound would be of benefit. 2. Cholelithiasis. 3. Thickening of the bladder wall. 4. Spinal stenosis in the lower spinal canal. PQRS Compliance Statement: One or more of the following individualized dose reduction techniques were utilized for this examination: 1. Automated exposure control 2. Adjustment of the mA and/or kV according to patient size 3. Use of iterative reconstruction technique Electronically signed by: Angelito Lima MD (05/27/2019 10:49 PM) [facility] DICTATED and SIGNED BY: ANGELITO LIMA MD DATE: 05/27/19 2249 (JUDE MCWILLIAMS APRN) Course & Med Decision Making Course & Med Decision Making Pertinent Labs and Imaging studies reviewed. (See chart for details) This is a 5-year-old male patient with history of end-stage kidney disease presenting to the ED today complaining of hematuria that began yesterday. Urine noted for moderate amount of leukocytes and large amount of blood CBC with a WBC of 15.9, CMP with potassium of 6.4, sodium 131, creatinine 9.3, BUN 65. Spoke with Dr. Thompson who gave orders for hyperkalemia protocol. Admitted under Dr. Pringle-Dr. Huddleston will give him report in am. (JUDE MCWILLIASM APRN) Dragon Disclaimer Dragon Disclaimer This electronic medical record was generated, in whole or in part, using a voice recognition dictation system. (JUDE MCWILLIAMS APRN) Departure Departure Impression: Primary Impression: Acute pyelonephritis Additional Impressions: ESRD (end stage renal disease) Hyperkalemia Disposition: ADMITTED INPATIENT Condition: STABLE Referrals: SUMANTH BRADLEY MD (PCP) Problem Qualifiers JUDE MCWILLIAMS APRN May 28, 2019 00:54 LEILANI HUDDLESTON MD May 29, 2019 07:53
[2019-05-28] MEDS ORDERED: cefTRIAXone IV Push 1 GM VIAL. IVP ONE (01:00)
[2019-05-28] MEDS ORDERED: ONDANSETRON PF 4 MG/2 ML VIAL. IV PRN (01:00)
[2019-05-28] MEDS ORDERED: MORPHINE SULFATE 4 MG/ML VIAL. IV PRN (01:00)
[2019-05-28] MEDS ORDERED: INSULIN REGULAR 100 UNIT/ML 3ML VIAL. IV ONE (01:15)
[2019-05-28] MEDS ORDERED: SODIUM BICARB ADULT 8.4% 50 MEQ/50 ML DISP.SYRIN. IV ONE (01:15)
[2019-05-28] MEDS ORDERED: DEXTROSE 50% 25 GM / 50ML DISP.SYRIN. IV ONE (01:15)
[2019-05-28] MEDS ORDERED: SODIUM POLYSTYRENE SULFON/SORB 15 GM/60 ML ORAL.SUSP PO ONE (01:15)
[2019-05-28] MEDS ORDERED: CALCIUM GLUCONATE 1,000 MG/10 ML VIAL. IVP ONE (01:15)
[2019-05-28] MEDS ORDERED: METO-239 PO (01:40)
[2019-05-28] MEDS ORDERED: ASPI81TA50 PO (01:40)
[2019-05-28] MEDS ORDERED: CHOL200027 PO (01:40)
[2019-05-28] MEDS ORDERED: CLON0.1T PO (01:40)
[2019-05-28] MEDS ORDERED: AURYXIA (01:40)
[2019-05-28] MEDS ORDERED: TRAZ-123 PO (01:40)
[2019-05-28] MEDS ORDERED: CYCL5TAB PO (01:40)
[2019-05-28] MEDS ORDERED: cloNIDine HCL 0.1 MG TABLET PO PRN (01:45)
[2019-05-28] MEDS ORDERED: DEXTROSE 50% 25 GM / 50ML DISP.SYRIN. IV PRN (02:00)
[2019-05-28] MEDS ORDERED: IV DEXTROSE 5% 250 ML BAG. IV PRN (02:00)
[2019-05-28 03:00] VITALS: BP 128/77
[2019-05-28] MEDS ORDERED: traZODone 100 MG TABLET. PO ONE (03:00)
[2019-05-28] MEDS ORDERED: CYCLOBENZAPRINE 10 MG TABLET. PO ONE (03:00)
--- NOTE | 2019-05-28 04:36 | NUR ---
Pt states he takes his diabetic oral medication as needed and also his metoprolol on non-HD days. His HD days are MWF. Pt states his BLE paralysis is sudden onset several months ago. He states his L great toe wound was secondary to a necrotic toenail removal by . States he sees wound care MD at [facility].
--- NOTE | 2019-05-28 05:41 | EKG ---
[facility] [address] [place] [address] Test Date: 2019-05-27 Test Time: 22:13:32 Pat Name: CHETNA BUCHANAN Department: Room: Gender: M [employer]er: : [id number] Requested By: JUDE MCWILLIAMS Order Number: [id number] Reading MD: Measurements Intervals [place] Rate: 107 P: [place]: QRS: -74 QRSD: 134 T: 56 QT: 368 QTc: 491 Interpretive Statements IRREGULAR RHYTHM, NO P-WAVE FOUND ABNORMAL LEFT AXIS DEVIATION LOW LIMB LEAD VOLTAGE NON SPECIFIC INTRAVENTRICULAR BLOCK ABNORMAL ECG RI6.01 No previous ECG available for comparison
[2019-05-28 07:15] VITALS: BP 100/52
[2019-05-28] MEDS: AURYXIA SCH ×3 (08:00→17:00)
[2019-05-28] MEDS: INSULIN LISPRO 300 UNITS/3 ML VIAL. SQ SCH ×3 (08:00→17:00)
[2019-05-28] MEDS: CALCIUM ACETATE 667 MG CAPSULE PO SCH ×4 (08:00→17:17)
[2019-05-28] MEDS: CHOLECALCIFEROL (VITAMIN D3) 1,000 UNIT TABLET PO SCH (10:36)
[2019-05-28] MEDS: FOLIC/VIT B COMP W-C (RENAL) TABLET. PO SCH (10:36)
[2019-05-28] MEDS: ASPIRIN ENTERIC COATED 81 MG TABLET.DR. PO SCH (10:37)
[2019-05-28] MEDS: LISINOPRIL 5 MG TABLET. PO SCH (10:37)
[2019-05-28 11:00] VITALS: BP 128/93
[2019-05-28] MEDS ORDERED: PIP/TAZO PER PHARMACY MC PRN (11:45)
--- NOTE | 2019-05-28 11:48 | PDOC1 ---
History and Physical Date of Admission: Date of Admission DATE: 05/28/19 TIME: 11:45 Chief Complaint: Problems: (1) Hyperthyroidism (2) Subtherapeutic international normalized ratio (INR) (3) Hyperkalemia (4) Renal failure (ARF), acute on chronic (5) Acute pyelonephritis (6) ESRD (end stage renal disease) Chief Complain: Hematuria and not feeling well History of Present Illness: HPI: Patient is a 68 year old male with history of chronic A. fib, high cholesterol, COPD, end-stage kidney disease on dialysis Monday was the Monday last dialyzed Monday, reports he didn't feel well to go to dialysis today who presents to the ED today complaining of hematuria that began yesterday. Patient denies any abdominal pain, nausea vomiting. Patient rates his pain at 7 out of 10 and it is worse when he urinates Describes as irritating Tried increasing home meds but that didn't work Not drinking makes it better I discussed the case with ER physician we are going to admit the patient and he is now making sepsis criteria so I'm going to start some IV Zosyn and consult infectious disease Past Medical/Surgical History: PMH/PSH: Past Medical History: A-Fib, COPD, High Cholesterol, Heart Disease, Kidney Stone, Renal Failure Additional Past Medical Histor: KIDNEY FAILURE Past Surgical History: Other Additional Past Surgical Histo: VAS CATH,PACER Allergies: Allergies: Coded Allergies: No Known Drug Allergies (Unverified , 12/24/15) Family History: Family History: Diabetes Social History: Social Hisoty: He does not drink smoke or take drugs Current Medications: Current Medications Current Medications Ceftriaxone Sodium (Rocephin) 1 gm 1X ONCE IVP Last administered on 05/28/19at 00:54; Start 05/28/19 at 01:00; Stop 05/28/19 at 01:01; Status DC Ondansetron HCl (Zofran) 4 mg PRN Q8HRS PRN IV NAUSEA/VOMITING 1ST CHOICE; Start 05/28/19 at 01:00; Stop 05/29/19 at 00:59 Morphine Sulfate (Morphine Sulfate) 4 mg PRN Q2HR PRN IV SEVERE PAIN 7-10; Start 05/28/19 at 01:00; Stop 05/29/19 at 00:59 Calcium Gluconate (Calcium Gluconate) 1,000 mg 1X ONCE IVP Last administered on 05/28/19at 02:42; Start 05/28/19 at 01:15; Stop 05/28/19 at 01:16; Status DC Sodium Bicarbonate (Sodium Bicarb Adult 8.4% Syr) 50 meq 1X ONCE IV ; Start 05/28/19 at 01:15; Stop 05/28/19 at 01:16; Status DC Dextrose (Dextrose 50%-Water Syringe) 25 gm 1X ONCE IV ; Start 05/28/19 at 01:15; Stop 05/28/19 at 01:16; Status DC Insulin Human Regular (HumuLIN R VIAL) 10 unit 1X ONCE IV ; Start 05/28/19 at 01:15; Stop 05/28/19 at 01:16; Status DC Sodium Polystyrene Sulfonate (Kayexalate) 30 gm 1X ONCE PO ; Start 05/28/19 at 01:15; Stop 05/28/19 at 01:16; Status DC Aspirin (Ecotrin) 81 mg DAILY PO Last administered on 05/28/19at 10:37; Start 05/28/19 at 09:00 Clonidine HCl (Catapres) 0.1 mg PRN Q4HRS PRN PO HYPERTENSION; Start 05/28/19 at 01:45 Vitamin B Complex/ Vitamin C (Suzy-Lily) 1 tab DAILY PO Last administered on 05/28/19at 10:36; Start 05/28/19 at 09:00 Acetaminophen/ Hydrocodone Bitart (Lortab 10/325) 1 tab PRN Q6HRS PRN PO SEVERE PAIN 7-10; Start 05/28/19 at 01:45 Metoprolol Succinate (Toprol Xl) 12.5 mg QTUTHSA PO ; Start 05/28/19 at 16:00 Trazodone HCl (Desyrel) 100 mg QHS PO ; Start 05/28/19 at 21:00 Calcium Acetate (Phoslo) 667 mg TIDWMEALS PO ; Start 05/28/19 at 08:00 Vitamin D (Vitamin D3) 1,000 unit DAILY PO Last administered on 05/28/19at 10:36; Start 05/28/19 at 09:00 Cyclobenzaprine HCl (Flexeril) 5 mg QHS PO ; Start 05/28/19 at 21:00 Lisinopril (Prinivil) 2.5 mg DAILY PO Last administered on 05/28/19at 10:37; Start 05/28/19 at 09:00 Non-Formulary Medication ([Auryxia] ) 2 tab TIDWMEALS .ROUTE ; Start 05/28/19 at 08:00; Status UNV Insulin Human Lispro (HumaLOG) 0-7 UNITS TIDWMEALS SQ ; Start 05/28/19 at 08:00 Dextrose (Dextrose 50%-Water Syringe) 12.5 gm PRN Q15MIN PRN IV SEE COMMENTS; Start 05/28/19 at 02:00 Dextrose (Iv Dextrose 5%) 250 ml PRN Q15MIN PRN IV SEE COMMENTS; Start 05/28/19 at 02:00 Trazodone HCl (Desyrel) 100 mg 1X ONCE PO Last administered on 05/28/19at 02:31; Start 05/28/19 at 03:00; Stop 05/28/19 at 03:01; Status DC Cyclobenzaprine HCl (Flexeril) 5 mg 1X ONCE PO Last administered on 05/28/19at 02:31; Start 05/28/19 at 03:00; Stop 05/28/19 at 03:01; Status DC Piperacillin Sod/ Tazobactam Sod (Zosyn Per Pharmacy) 1 each PRN DAILY PRN MC SEE COMMENTS; Start 05/28/19 at 11:45; Status UNV Active Scripts Active Reported Trazodone Hcl 100 Mg Tablet 1 Tab PO QHS Cyclobenzaprine Hcl 5 Mg Tablet 1 Tab PO QHS Clonidine Hcl 0.1 Mg Tablet 1 Tab PO PRN Q4HRS PRN Vitamin D3 (Cholecalciferol (Vitamin D3)) 2,000 Unit Tablet 1,000 Unit PO DAILY [Auryxia] 2 Tab TIDWMEALS Aspir-Low (Aspirin) 81 Mg Tablet.dr 1 Tab PO DAILY Metoprolol Succinate ( Xl ) (Metoprolol Succinate) 25 Mg Tab.er.24h 12.5 Mg PO QTUTHSA Nephro-Lily Tablet (Folic Acid/Vitamin B Comp W-C) 0.8 Mg Tablet 1 Tab PO DAILY Lisinopril 2.5 Mg Tablet 1 Tab PO DAILY Hydrocodone-Apap 10-325 (Hydrocodone Bit/Acetaminophen) 1 Each Tablet 1 Tab PO PRN Q6HRS PRN Calcium Acetate 667 Mg Tablet 667 Mg PO TIDWMEALS [place] 10-325 Tablet (Acetaminophen/Hydrocodone Bitart) 1 Each Tablet 1 Tab PO PRN Q6HRS PRN Nateglinide 120 Mg Tablet 120 Mg PO BID ROS: Review of Systems Review of System REVIEW OF SYSTEMS: GENERAL: Complains of some mild weakness SKIN: No bruising, hair changes or rashes. EYES: No blurred, double or loss of vision. NOSE AND THROAT: No history of nosebleeds, hoarseness or sore throat. HEART: No history of palpitations, chest pain or shortness of breath on exertion. LUNGS: Denies cough, hemoptysis, wheezing or shortness of breath. GASTROINTESTINAL: Denies changes in appetite, nausea, vomiting, diarrhea or constipation. GENITOURINARY: No history of frequency, urgency, hesitancy or nocturia. NEUROLOGIC: Denies history of numbness, tingling, tremor or weakness. PSYCHIATRIC: No history of panic, anxiety or depression. ENDOCRINE: No history of heat or cold intolerance, polyuria or polydipsia. EXTREMITIES: Denies muscle weakness, joint pain, pain on walking or stiffness. Genitourinary he complains of dysuria and hematuria Physical Exam: Vital Signs: Vital Signs Date Time Temp Pulse Resp B/P (MAP) Pulse Ox O2 Delivery O2 Flow Rate FiO2 05/28/19 11:00 98.1 69 18 128/93 (105) 93 Room Air 98.1 Physcial Exam: GEN: No apparent distress. Alert and oriented HEENT: Normal cephalic, atraumatic, external auditory canals are patent EYES: Extraocular muscles are intact, pupil are equally round and reactive to light and accommodation MUSCULOSKELETAL: Well developed , well nourished, good range of motion ENDOCRINE: No thyromegaly was palpated LYMPHATICS: No cervical chain or axillary nodes were noted HEMATOPOIETIC: No bruising NECK: Supple, no JVD, no thyromegaly was noted LUNGS: Clear to auscultation in all lung [place] without rhonchi or wheezing HEART: RRR, S!, S2 present. Peripheral pulses intact, no obvious murmurs noted ABDOMEN: Soft, nontender. Positive bowel sounds, no organomegaly, normal bowel sounds EXTREMITIES: Without clubbing, cyanosis, or edema. Pedal pulses intact. Negative Homans sign NEUROLOGIC: Normal speech and tone. A&O x 3, moves all extremities, no obvious focal deficits PSYCHIATRIC: Normal affect, normal mood. Stable SKIN: No ulcerations or rashes, good skin turgor, no jaundice VASCULAR: Good capillary refill, neurovascular bundle appears to be intact Labs: Labs: Laboratory Tests Test 05/27/19 22:30 05/27/19 22:55 05/28/19 07:29 Urine Collection Type Unknown Urine Color Red Urine Clarity Cloudy Urine pH 8.5 Urine Specific [place] 1.015 Urine Protein >=300 mg/dL (NEG-TRACE) Urine Glucose (UA) Negative mg/dL (NEG) Urine Ketones (Stick) Negative mg/dL (NEG) Urine Blood Large (NEG) Urine Nitrite Negative (NEG) Urine Bilirubin Negative (NEG) Urine Urobilinogen Dipstick 0.2 mg/dL (0.2 mg/dL) Urine Leukocyte Esterase Moderate (NEG) Urine RBC Tntc /HPF (0-2) Urine WBC 20-40 /HPF (0-4) Urine Squamous Epithelial Cells Occ /LPF Urine Bacteria 0 /HPF (0-FEW) White Blood Count 15.9 x10^3/uL (4.0-11.0) Red Blood Count 3.21 x10^6/uL (4.30-5.70) Hemoglobin 10.8 g/dL (13.0-17.5) Hematocrit 32.2 % (39.0-53.0) Mean Corpuscular Volume 101 fL (79-100) Mean Corpuscular Hemoglobin 34 pg (25-35) Mean Corpuscular Hemoglobin Concent 34 g/dL (31-37) Red Cell Distribution Width 15.8 % (11.5-14.5) Platelet Count 275 x10^3/uL (140-400) Neutrophils (%) (Auto) 81 % (31-73) Lymphocytes (%) (Auto) 9 % (24-48) Monocytes (%) (Auto) 7 % (0-9) Eosinophils (%) (Auto) 3 % (0-3) Basophils (%) (Auto) 1 % (0-3) Neutrophils # (Auto) 12.9 x10^3/uL (1.8-7.7) Lymphocytes # (Auto) 1.4 x10^3/uL (1.0-4.8) Monocytes # (Auto) 1.1 x10^3/uL (0.0-1.1) Eosinophils # (Auto) 0.4 x10^3/uL (0.0-0.7) Basophils # (Auto) 0.1 x10^3/uL (0.0-0.2) Segmented Neutrophils % 84 % (35-66) Band Neutrophils % 1 % (0-9) Lymphocytes % 8 % (24-48) Monocytes % 5 % (0-10) Eosinophils % 1 % (0-5) Basophils % 1 % (0-3) Platelet Estimate Adequate (ADEQUATE) Sodium Level 131 mmol/L (136-145) Potassium Level 6.4 mmol/L (3.5-5.1) Chloride Level 94 mmol/L (98-107) Carbon Dioxide Level 30 mmol/L (21-32) Anion Gap 7 (6-14) Blood Urea Nitrogen 65 mg/dL (8-26) Creatinine 9.3 mg/dL (0.7-1.3) Estimated GFR (Cockcroft-Gault) 5.6 BUN/Creatinine Ratio 7 (6-20) Glucose Level 142 mg/dL (70-99) Calcium Level 9.3 mg/dL (8.5-10.1) Total Bilirubin 0.5 mg/dL (0.2-1.0) Aspartate Amino Transf (AST/SGOT) 15 U/L (15-37) Alanine Aminotransferase (ALT/SGPT) 11 U/L (16-63) Alkaline Phosphatase 81 U/L (46-116) Total Protein 7.5 g/dL (6.4-8.2) Albumin 3.4 g/dL (3.4-5.0) Albumin/Globulin Ratio 0.8 (1.0-1.7) Glucose (Fingerstick) 131 mg/dL (70-99) Laboratory Tests Test 05/27/19 22:30 05/27/19 22:55 05/28/19 07:29 Urine Collection Type Unknown Urine Color Red Urine Clarity Cloudy Urine pH 8.5 Urine Specific [place] 1.015 Urine Protein >=300 mg/dL (NEG-TRACE) Urine Glucose (UA) Negative mg/dL (NEG) Urine Ketones (Stick) Negative mg/dL (NEG) Urine Blood Large (NEG) Urine Nitrite Negative (NEG) Urine Bilirubin Negative (NEG) Urine Urobilinogen Dipstick 0.2 mg/dL (0.2 mg/dL) Urine Leukocyte Esterase Moderate (NEG) Urine RBC Tntc /HPF (0-2) Urine WBC 20-40 /HPF (0-4) Urine Squamous Epithelial Cells Occ /LPF Urine Bacteria 0 /HPF (0-FEW) White Blood Count 15.9 x10^3/uL (4.0-11.0) Red Blood Count 3.21 x10^6/uL (4.30-5.70) Hemoglobin 10.8 g/dL (13.0-17.5) Hematocrit 32.2 % (39.0-53.0) Mean Corpuscular Volume 101 fL (79-100) Mean Corpuscular Hemoglobin 34 pg (25-35) Mean Corpuscular Hemoglobin Concent 34 g/dL (31-37) Red Cell Distribution Width 15.8 % (11.5-14.5) Platelet Count 275 x10^3/uL (140-400) Neutrophils (%) (Auto) 81 % (31-73) Lymphocytes (%) (Auto) 9 % (24-48) Monocytes (%) (Auto) 7 % (0-9) Eosinophils (%) (Auto) 3 % (0-3) Basophils (%) (Auto) 1 % (0-3) Neutrophils # (Auto) 12.9 x10^3/uL (1.8-7.7) Lymphocytes # (Auto) 1.4 x10^3/uL (1.0-4.8) Monocytes # (Auto) 1.1 x10^3/uL (0.0-1.1) Eosinophils # (Auto) 0.4 x10^3/uL (0.0-0.7) Basophils # (Auto) 0.1 x10^3/uL (0.0-0.2) Segmented Neutrophils % 84 % (35-66) Band Neutrophils % 1 % (0-9) Lymphocytes % 8 % (24-48) Monocytes % 5 % (0-10) Eosinophils % 1 % (0-5) Basophils % 1 % (0-3) Platelet Estimate Adequate (ADEQUATE) Sodium Level 131 mmol/L (136-145) Potassium Level 6.4 mmol/L (3.5-5.1) Chloride Level 94 mmol/L (98-107) Carbon Dioxide Level 30 mmol/L (21-32) Anion Gap 7 (6-14) Blood Urea Nitrogen 65 mg/dL (8-26) Creatinine 9.3 mg/dL (0.7-1.3) Estimated GFR (Cockcroft-Gault) 5.6 BUN/Creatinine Ratio 7 (6-20) Glucose Level 142 mg/dL (70-99) Calcium Level 9.3 mg/dL (8.5-10.1) Total Bilirubin 0.5 mg/dL (0.2-1.0) Aspartate Amino Transf (AST/SGOT) 15 U/L (15-37) Alanine Aminotransferase (ALT/SGPT) 11 U/L (16-63) Alkaline Phosphatase 81 U/L (46-116) Total Protein 7.5 g/dL (6.4-8.2) Albumin 3.4 g/dL (3.4-5.0) Albumin/Globulin Ratio 0.8 (1.0-1.7) Glucose (Fingerstick) 131 mg/dL (70-99) Images: Images Chest x-ray did not show acute changes Assessment/Plan Assessment/Plan Hematuria sepsis pyelonephritis and a elderly male who has the above-noted comorbidities Plan Zosyn per pharmacy Gentle IV fluids if nephrology agrees Consult ID and nephrology Home meds DVT prophylaxis Blood cultures Trend labs Full code When necessary LAVERNE Lang III DO May 28, 2019 11:48
--- NOTE | 2019-05-28 12:00 | NUR ---
left for dialysis at this time
--- NOTE | 2019-05-28 12:42 | PDOC2 ---
CONSULT Date of Consult Date of Consult DATE: 05/28/19 TIME: 12:37 Reason for Consult Reason for Consult: ESRD WITH HIGH K Referring Physician Referring Physician: [email or web address] Identification/Chief Complaint Chief Complaint HEMATURIA Source Source: Chart review, Patient History of Present Illness Reason for Visit: THIS IS A 68 YR OLD ESRD PT WITH OP HD ON MWF. SKIPPED HIS TX YESTERDAY. CAME IN HEMATURIA.. NO PRIOR HX OF SUCH. LABS ARE C/W ESRD. ESRD IS DUE TO HTN HX. SIGNIFICANT HYPERKALEMIA IS NOTED Past Medical History Cardiovascular: CAD, CHF, HTN Pulmonary: COPD GI: Peptic Ulcer disease Heme/Onc: Anemia NOS Psych: Anxiety Renal/: Chronic renal failure Endocrine: Diabetes, Hyperparathyroidism Past Surgical History Past Surgical History: Pacemaker Family History Family History: Cancer, Diabetes, Hypertension Social History ALCOHOL: none Drugs: None Lives: with Family Current Medications Current Medications Current Medications Ceftriaxone Sodium (Rocephin) 1 gm 1X ONCE IVP Last administered on 05/28/19at 00:54; Start 05/28/19 at 01:00; Stop 05/28/19 at 01:01; Status DC Ondansetron HCl (Zofran) 4 mg PRN Q8HRS PRN IV NAUSEA/VOMITING 1ST CHOICE; Start 05/28/19 at 01:00; Stop 05/29/19 at 00:59 Morphine Sulfate (Morphine Sulfate) 4 mg PRN Q2HR PRN IV SEVERE PAIN 7-10; Start 05/28/19 at 01:00; Stop 05/29/19 at 00:59 Calcium Gluconate (Calcium Gluconate) 1,000 mg 1X ONCE IVP Last administered on 05/28/19at 02:42; Start 05/28/19 at 01:15; Stop 05/28/19 at 01:16; Status DC Sodium Bicarbonate (Sodium Bicarb Adult 8.4% Syr) 50 meq 1X ONCE IV ; Start 05/28/19 at 01:15; Stop 05/28/19 at 01:16; Status DC Dextrose (Dextrose 50%-Water Syringe) 25 gm 1X ONCE IV ; Start 05/28/19 at 01:15; Stop 05/28/19 at 01:16; Status DC Insulin Human Regular (HumuLIN R VIAL) 10 unit 1X ONCE IV ; Start 05/28/19 at 01:15; Stop 05/28/19 at 01:16; Status DC Sodium Polystyrene Sulfonate (Kayexalate) 30 gm 1X ONCE PO ; Start 05/28/19 at 01:15; Stop 05/28/19 at 01:16; Status DC Aspirin (Ecotrin) 81 mg DAILY PO Last administered on 05/28/19at 10:37; Start 05/28/19 at 09:00 Clonidine HCl (Catapres) 0.1 mg PRN Q4HRS PRN PO HYPERTENSION; Start 05/28/19 at 01:45 Vitamin B Complex/ Vitamin C (Suzy-Lily) 1 tab DAILY PO Last administered on 05/28/19at 10:36; Start 05/28/19 at 09:00 Acetaminophen/ Hydrocodone Bitart (Lortab 10/325) 1 tab PRN Q6HRS PRN PO SEVERE PAIN 7-10; Start 05/28/19 at 01:45 Metoprolol Succinate (Toprol Xl) 12.5 mg QTUTHSA PO ; Start 05/28/19 at 16:00 Trazodone HCl (Desyrel) 100 mg QHS PO ; Start 05/28/19 at 21:00 Calcium Acetate (Phoslo) 667 mg TIDWMEALS PO ; Start 05/28/19 at 08:00 Vitamin D (Vitamin D3) 1,000 unit DAILY PO Last administered on 05/28/19at 10:36; Start 05/28/19 at 09:00 Cyclobenzaprine HCl (Flexeril) 5 mg QHS PO ; Start 05/28/19 at 21:00 Lisinopril (Prinivil) 2.5 mg DAILY PO Last administered on 05/28/19at 10:37; Start 05/28/19 at 09:00 Non-Formulary Medication ([Auryxia] ) 2 tab TIDWMEALS .ROUTE ; Start 05/28/19 at 08:00; Status UNV Insulin Human Lispro (HumaLOG) 0-7 UNITS TIDWMEALS SQ ; Start 05/28/19 at 08:00 Dextrose (Dextrose 50%-Water Syringe) 12.5 gm PRN Q15MIN PRN IV SEE COMMENTS; Start 05/28/19 at 02:00 Dextrose (Iv Dextrose 5%) 250 ml PRN Q15MIN PRN IV SEE COMMENTS; Start 05/28/19 at 02:00 Trazodone HCl (Desyrel) 100 mg 1X ONCE PO Last administered on 05/28/19at 02:31; Start 05/28/19 at 03:00; Stop 05/28/19 at 03:01; Status DC Cyclobenzaprine HCl (Flexeril) 5 mg 1X ONCE PO Last administered on 05/28/19at 02:31; Start 05/28/19 at 03:00; Stop 05/28/19 at 03:01; Status DC Piperacillin Sod/ Tazobactam Sod (Zosyn Per Pharmacy) 1 each PRN DAILY PRN MC SEE COMMENTS; Start 05/28/19 at 11:45; Status UNV Active Scripts Active Reported Trazodone Hcl 100 Mg Tablet 1 Tab PO QHS Cyclobenzaprine Hcl 5 Mg Tablet 1 Tab PO QHS Clonidine Hcl 0.1 Mg Tablet 1 Tab PO PRN Q4HRS PRN Vitamin D3 (Cholecalciferol (Vitamin D3)) 2,000 Unit Tablet 1,000 Unit PO DAILY [Auryxia] 2 Tab TIDWMEALS Aspir-Low (Aspirin) 81 Mg Tablet.dr 1 Tab PO DAILY Metoprolol Succinate ( Xl ) (Metoprolol Succinate) 25 Mg Tab.er.24h 12.5 Mg PO QTUTHSA Nephro-Lily Tablet (Folic Acid/Vitamin B Comp W-C) 0.8 Mg Tablet 1 Tab PO DAILY Lisinopril 2.5 Mg Tablet 1 Tab PO DAILY Hydrocodone-Apap 10-325 (Hydrocodone Bit/Acetaminophen) 1 Each Tablet 1 Tab PO PRN Q6HRS PRN Calcium Acetate 667 Mg Tablet 667 Mg PO TIDWMEALS [place] 10-325 Tablet (Acetaminophen/Hydrocodone Bitart) 1 Each Tablet 1 Tab PO PRN Q6HRS PRN Nateglinide 120 Mg Tablet 120 Mg PO BID Allergies Allergies: Coded Allergies: No Known Drug Allergies (Unverified , 12/24/15) ROS General: YES: Fatigue, Malaise PSYCHOLOGICAL ROS: YES: Anxiety Eyes: Yes Decreased vision ALLERGY AND IMMUNOLOGY: YES: Seasonal Allergies Respiratory: YES: Cough Gastrointestinal: Yes Constipation Genitourinary: YES Hematuria, YES Other (ANURIA) Musculoskeletal: Yes Muscular Weakness Neurological: Yes Weakness Skin: Yes Dry Skin Physical Exam General: Alert, Oriented X3, Cooperative, No acute distress HEENT: Atraumatic Lungs: Clear to auscultation Heart: Regular rate Abdomen: Normal bowel sounds, Soft, No tenderness Extremities: No clubbing Skin: No breakdown Neuro: Normal speech, Sensation intact Psych/Mental Status: Mental status NL, Mood NL MUSCULOSKELETAL: No joint tenderness, No deformity Vitals VITALS Vital Signs Date Time Temp Pulse Resp B/P (MAP) Pulse Ox O2 Delivery O2 Flow Rate FiO2 05/28/19 11:00 98.1 69 18 128/93 (105) 93 Room Air 98.1 Labs Labs Laboratory Tests Test 05/27/19 22:30 05/27/19 22:55 05/28/19 07:29 05/28/19 11:40 Urine Collection Type Unknown Urine Color Red Urine Clarity Cloudy Urine pH 8.5 Urine Specific [place] 1.015 Urine Protein >=300 mg/dL (NEG-TRACE) Urine Glucose (UA) Negative mg/dL (NEG) Urine Ketones (Stick) Negative mg/dL (NEG) Urine Blood Large (NEG) Urine Nitrite Negative (NEG) Urine Bilirubin Negative (NEG) Urine Urobilinogen Dipstick 0.2 mg/dL (0.2 mg/dL) Urine Leukocyte Esterase Moderate (NEG) Urine RBC Tntc /HPF (0-2) Urine WBC 20-40 /HPF (0-4) Urine Squamous Epithelial Cells Occ /LPF Urine Bacteria 0 /HPF (0-FEW) White Blood Count 15.9 x10^3/uL (4.0-11.0) Red Blood Count 3.21 x10^6/uL (4.30-5.70) Hemoglobin 10.8 g/dL (13.0-17.5) Hematocrit 32.2 % (39.0-53.0) Mean Corpuscular Volume 101 fL (79-100) Mean Corpuscular Hemoglobin 34 pg (25-35) Mean Corpuscular Hemoglobin Concent 34 g/dL (31-37) Red Cell Distribution Width 15.8 % (11.5-14.5) Platelet Count 275 x10^3/uL (140-400) Neutrophils (%) (Auto) 81 % (31-73) Lymphocytes (%) (Auto) 9 % (24-48) Monocytes (%) (Auto) 7 % (0-9) Eosinophils (%) (Auto) 3 % (0-3) Basophils (%) (Auto) 1 % (0-3) Neutrophils # (Auto) 12.9 x10^3/uL (1.8-7.7) Lymphocytes # (Auto) 1.4 x10^3/uL (1.0-4.8) Monocytes # (Auto) 1.1 x10^3/uL (0.0-1.1) Eosinophils # (Auto) 0.4 x10^3/uL (0.0-0.7) Basophils # (Auto) 0.1 x10^3/uL (0.0-0.2) Segmented Neutrophils % 84 % (35-66) Band Neutrophils % 1 % (0-9) Lymphocytes % 8 % (24-48) Monocytes % 5 % (0-10) Eosinophils % 1 % (0-5) Basophils % 1 % (0-3) Platelet Estimate Adequate (ADEQUATE) Sodium Level 131 mmol/L (136-145) Potassium Level 6.4 mmol/L (3.5-5.1) Chloride Level 94 mmol/L (98-107) Carbon Dioxide Level 30 mmol/L (21-32) Anion Gap 7 (6-14) Blood Urea Nitrogen 65 mg/dL (8-26) Creatinine 9.3 mg/dL (0.7-1.3) Estimated GFR (Cockcroft-Gault) 5.6 BUN/Creatinine Ratio 7 (6-20) Glucose Level 142 mg/dL (70-99) Calcium Level 9.3 mg/dL (8.5-10.1) Total Bilirubin 0.5 mg/dL (0.2-1.0) Aspartate Amino Transf (AST/SGOT) 15 U/L (15-37) Alanine Aminotransferase (ALT/SGPT) 11 U/L (16-63) Alkaline Phosphatase 81 U/L (46-116) Total Protein 7.5 g/dL (6.4-8.2) Albumin 3.4 g/dL (3.4-5.0) Albumin/Globulin Ratio 0.8 (1.0-1.7) Glucose (Fingerstick) 131 mg/dL (70-99) 143 mg/dL (70-99) Laboratory Tests Test 05/27/19 22:30 05/27/19 22:55 05/28/19 07:29 05/28/19 11:40 Urine Collection Type Unknown Urine Color Red Urine Clarity Cloudy Urine pH 8.5 Urine Specific [place] 1.015 Urine Protein >=300 mg/dL (NEG-TRACE) Urine Glucose (UA) Negative mg/dL (NEG) Urine Ketones (Stick) Negative mg/dL (NEG) Urine Blood Large (NEG) Urine Nitrite Negative (NEG) Urine Bilirubin Negative (NEG) Urine Urobilinogen Dipstick 0.2 mg/dL (0.2 mg/dL) Urine Leukocyte Esterase Moderate (NEG) Urine RBC Tntc /HPF (0-2) Urine WBC 20-40 /HPF (0-4) Urine Squamous Epithelial Cells Occ /LPF Urine Bacteria 0 /HPF (0-FEW) White Blood Count 15.9 x10^3/uL (4.0-11.0) Red Blood Count 3.21 x10^6/uL (4.30-5.70) Hemoglobin 10.8 g/dL (13.0-17.5) Hematocrit 32.2 % (39.0-53.0) Mean Corpuscular Volume 101 fL (79-100) Mean Corpuscular Hemoglobin 34 pg (25-35) Mean Corpuscular Hemoglobin Concent 34 g/dL (31-37) Red Cell Distribution Width 15.8 % (11.5-14.5) Platelet Count 275 x10^3/uL (140-400) Neutrophils (%) (Auto) 81 % (31-73) Lymphocytes (%) (Auto) 9 % (24-48) Monocytes (%) (Auto) 7 % (0-9) Eosinophils (%) (Auto) 3 % (0-3) Basophils (%) (Auto) 1 % (0-3) Neutrophils # (Auto) 12.9 x10^3/uL (1.8-7.7) Lymphocytes # (Auto) 1.4 x10^3/uL (1.0-4.8) Monocytes # (Auto) 1.1 x10^3/uL (0.0-1.1) Eosinophils # (Auto) 0.4 x10^3/uL (0.0-0.7) Basophils # (Auto) 0.1 x10^3/uL (0.0-0.2) Segmented Neutrophils % 84 % (35-66) Band Neutrophils % 1 % (0-9) Lymphocytes % 8 % (24-48) Monocytes % 5 % (0-10) Eosinophils % 1 % (0-5) Basophils % 1 % (0-3) Platelet Estimate Adequate (ADEQUATE) Sodium Level 131 mmol/L (136-145) Potassium Level 6.4 mmol/L (3.5-5.1) Chloride Level 94 mmol/L (98-107) Carbon Dioxide Level 30 mmol/L (21-32) Anion Gap 7 (6-14) Blood Urea Nitrogen 65 mg/dL (8-26) Creatinine 9.3 mg/dL (0.7-1.3) Estimated GFR (Cockcroft-Gault) 5.6 BUN/Creatinine Ratio 7 (6-20) Glucose Level 142 mg/dL (70-99) Calcium Level 9.3 mg/dL (8.5-10.1) Total Bilirubin 0.5 mg/dL (0.2-1.0) Aspartate Amino Transf (AST/SGOT) 15 U/L (15-37) Alanine Aminotransferase (ALT/SGPT) 11 U/L (16-63) Alkaline Phosphatase 81 U/L (46-116) Total Protein 7.5 g/dL (6.4-8.2) Albumin 3.4 g/dL (3.4-5.0) Albumin/Globulin Ratio 0.8 (1.0-1.7) Glucose (Fingerstick) 131 mg/dL (70-99) 143 mg/dL (70-99) Assessment/Plan Assessment/Plan IMP HEMATURIA ANEMIA LEUCOCYTOSIS HYPERKALEMIA HTN HX ESRD-MWF ENC COMPLIANCE UTI PLAN ANTIBIOTICS HD TODAY UF TO DW WILL NEED OP EVAL BY UROLOGY START ARAPILIP CT ABD AND PELVIS ENC COMPLIANCE DAMARIS LEAL MD May 28, 2019 12:42
[2019-05-28 16:10] VITALS: BP 143/74
[2019-05-28] MEDS: PIPERACILLIN/TAZOBACTAM 2.25 GM in IV NORMAL SALINE 50ML 50 ML IV SCH ×2 (17:17→22:00)
[2019-05-28] MEDS: METOPROLOL SUCC 24HR ER 25 MG TAB.ER.24H. PO SCH (17:18)
[2019-05-28 19:00] VITALS: BP 110/55
[2019-05-28] MEDS ORDERED: DARBEPOETIN ALFA 60 MCG/0.3 ML DISP.SYRIN. SQ SCH (21:00)
[2019-05-28] MEDS: CYCLOBENZAPRINE 10 MG TABLET. PO SCH (21:07)
[2019-05-28] MEDS: traZODone 100 MG TABLET. PO SCH (21:07)
[2019-05-28] MEDS: HYDROcodone/APAP 10/325 1 TAB TABLET PO PRN (21:07)
[2019-05-28 23:00] VITALS: BP 121/58
[2019-05-29 03:00] VITALS: BP 124/65
[2019-05-29 05:11] LABS: BASO # 0.1 x10^3/uL (0.0-0.2); BASO % 1 % (0-3); EOS # 0.3 x10^3/uL (0.0-0.7); EOS % 3 % (0-3); HEMATOCRIT 31.2 % (39.0-53.0); HEMOGLOBIN 10.6 g/dL (13.0-17.5); LYMPH # 1.1 x10^3/uL (1.0-4.8); LYMPH % 11 % (24-48); MEAN CORPUSCULAR HEMOGLOBIN 34 pg (25-35); MEAN CORPUSCULAR HGB CONC 34 g/dL (31-37); MEAN CORPUSCULAR VOLUME 100 fL (79-100); MONO # 0.8 x10^3/uL (0.0-1.1); MONO % 9 % (0-9); NEUT # 7.4 x10^3/uL (1.8-7.7); NEUT % 76 % (31-73); PLATELET COUNT 237 x10^3/uL (140-400); RED BLOOD COUNT 3.11 x10^6/uL (4.30-5.70); RED CELL DISTRIBUTION WIDTH 16.1 % (11.5-14.5); WHITE BLOOD COUNT 9.6 x10^3/uL (4.0-11.0)
[2019-05-29 05:50] LABS: CALCIUM 9.2 mg/dL (8.5-10.1); CREATININE 7.4 mg/dL (0.7-1.3); GFR 7.3; POTASSIUM 4.9 mmol/L (3.5-5.1)
[2019-05-29] MEDS: PIPERACILLIN/TAZOBACTAM 2.25 GM in IV NORMAL SALINE 50ML 50 ML IV SCH ×3 (06:02→21:34)
[2019-05-29 07:08] VITALS: BP 97/54
[2019-05-29] MEDS: AURYXIA SCH ×3 (08:00→17:00)
[2019-05-29] MEDS: INSULIN LISPRO 300 UNITS/3 ML VIAL. SQ SCH ×3 (08:00→16:57)
[2019-05-29] MEDS: CALCIUM ACETATE 667 MG CAPSULE PO SCH ×3 (08:00→17:46)
[2019-05-29] MEDS ORDERED: IV NORMAL SALINE 1000ML BAG 1,000 ML IV PRN ×2 (09:17)
[2019-05-29] MEDS ORDERED: diphenhydrAMINE 50 MG/ML VIAL IV PRN ×2 (09:30)
[2019-05-29] MEDS ORDERED: ALBUMIN HUMAN 25% 200 ML IV PRN (09:30)
[2019-05-29] MEDS ORDERED: ACETAMINOPHEN 500 MG TABLET PO PRN (09:30)
[2019-05-29] MEDS ORDERED: DIALYSIS PATIENT. MC PRN (09:30)
--- NOTE | 2019-05-29 10:09 | PDOC ---
PROGRESS NOTES History of Present Illness History of Present Illness Assessment/Plan Past Medical/Surgical History: PMH/PSH: Past Medical History: A-Fib, COPD, High Cholesterol, Heart Disease, Kidney Stone, Renal Failure Additional Past Medical Histor: KIDNEY FAILURE Past Surgical History: Other Additional Past Surgical Histo: VAS CATH,PACER Allergies: Allergies: Coded Allergies: No Known Drug Allergies (Unverified , 12/24/15) Family History: Family History: Diabetes Social History: Social Hisoty: He does not drink smoke or take drugs Assessment/Plan Hematuria sepsis pyelonephritis and a elderly male who has the above-noted comorbidities esrd Plan Zosyn per pharmacy Gentle IV fluids if nephrology agrees Consult ID and nephrology Home meds DVT prophylaxis Blood cultures Trend labs Full code When necessary Tylenol Vitals Vitals Vital Signs Date Time Temp Pulse Resp B/P (MAP) Pulse Ox O2 Delivery O2 Flow Rate FiO2 05/29/19 07:50 Room Air 05/29/19 07:08 99.2 72 18 97/54 (68) 93 99.2 Physical Exam General: Alert, Oriented X3, Cooperative, No acute distress Heart: Regular rate, Normal S1 Lungs: Clear Abdomen: Normal bowel sounds, Soft, No tenderness Extremities: No clubbing, No cyanosis Skin: No breakdown Labs LABS CT abdomen and pelvis without contrast. HISTORY: Hematuria CT scan the abdomen pelvis was done without contrast. Lung bases are clear. There is no effusion. A liver lesion is not identified. There are multiple calcified gallstones in the gallbladder. Spleen and adrenal glands are normal. A pancreatic lesion is not identified. There is no retroperitoneal adenopathy. There is extensive vascular calcification at the renal arteries. There is a 1.5 cm lesion the medial left kidney would with a CT number slightly too high for a normal cyst. Complicated cyst or small mass is possible. There is a lesion at the lower pole of the right kidney with a similar CT number too high for a simple cyst. Lesion the left right kidney measures 2.6 cm. Ultrasound could be of benefit or follow-up. There is no bowel obstruction. Appendix is normal. There is marked thickening of the bladder wall. There is slight formation surrounding the bladder cystitis is possible. There is degenerative change in the lumbar spine. There is spinal stenosis at L4-5. IMPRESSION: 1. Renal lesions which are not simple cysts, ultrasound would be of benefit. 2. Cholelithiasis. 3. Thickening of the bladder wall. 4. Spinal stenosis in the lower spinal canal. Laboratory Tests Test 05/28/19 11:40 05/28/19 12:25 05/29/19 05:00 Glucose (Fingerstick) 143 mg/dL (70-99) Lactic Acid Level 0.5 mmol/L (0.4-2.0) White Blood Count 9.6 x10^3/uL (4.0-11.0) Red Blood Count 3.11 x10^6/uL (4.30-5.70) Hemoglobin 10.6 g/dL (13.0-17.5) Hematocrit 31.2 % (39.0-53.0) Mean Corpuscular Volume 100 fL (79-100) Mean Corpuscular Hemoglobin 34 pg (25-35) Mean Corpuscular Hemoglobin Concent 34 g/dL (31-37) Red Cell Distribution Width 16.1 % (11.5-14.5) Platelet Count 237 x10^3/uL (140-400) Neutrophils (%) (Auto) 76 % (31-73) Lymphocytes (%) (Auto) 11 % (24-48) Monocytes (%) (Auto) 9 % (0-9) Eosinophils (%) (Auto) 3 % (0-3) Basophils (%) (Auto) 1 % (0-3) Neutrophils # (Auto) 7.4 x10^3/uL (1.8-7.7) Lymphocytes # (Auto) 1.1 x10^3/uL (1.0-4.8) Monocytes # (Auto) 0.8 x10^3/uL (0.0-1.1) Eosinophils # (Auto) 0.3 x10^3/uL (0.0-0.7) Basophils # (Auto) 0.1 x10^3/uL (0.0-0.2) Sodium Level 135 mmol/L (136-145) Potassium Level 4.9 mmol/L (3.5-5.1) Chloride Level 96 mmol/L (98-107) Carbon Dioxide Level 28 mmol/L (21-32) Anion Gap 11 (6-14) Blood Urea Nitrogen 45 mg/dL (8-26) Creatinine 7.4 mg/dL (0.7-1.3) Estimated GFR (Cockcroft-Gault) 7.3 Glucose Level 106 mg/dL (70-99) Calcium Level 9.2 mg/dL (8.5-10.1) Comment Review of Relevant I have reviewed the following items breanna (where applicable) has been applied. Labs Laboratory Tests Test 05/27/19 22:30 05/27/19 22:55 05/28/19 07:29 05/28/19 11:40 Urine Collection Type Unknown Urine Color Red Urine Clarity Cloudy Urine pH 8.5 Urine Specific [place] 1.015 Urine Protein >=300 mg/dL (NEG-TRACE) Urine Glucose (UA) Negative mg/dL (NEG) Urine Ketones (Stick) Negative mg/dL (NEG) Urine Blood Large (NEG) Urine Nitrite Negative (NEG) Urine Bilirubin Negative (NEG) Urine Urobilinogen Dipstick 0.2 mg/dL (0.2 mg/dL) Urine Leukocyte Esterase Moderate (NEG) Urine RBC Tntc /HPF (0-2) Urine WBC 20-40 /HPF (0-4) Urine Squamous Epithelial Cells Occ /LPF Urine Bacteria 0 /HPF (0-FEW) White Blood Count 15.9 x10^3/uL (4.0-11.0) Red Blood Count 3.21 x10^6/uL (4.30-5.70) Hemoglobin 10.8 g/dL (13.0-17.5) Hematocrit 32.2 % (39.0-53.0) Mean Corpuscular Volume 101 fL (79-100) Mean Corpuscular Hemoglobin 34 pg (25-35) Mean Corpuscular Hemoglobin Concent 34 g/dL (31-37) Red Cell Distribution Width 15.8 % (11.5-14.5) Platelet Count 275 x10^3/uL (140-400) Neutrophils (%) (Auto) 81 % (31-73) Lymphocytes (%) (Auto) 9 % (24-48) Monocytes (%) (Auto) 7 % (0-9) Eosinophils (%) (Auto) 3 % (0-3) Basophils (%) (Auto) 1 % (0-3) Neutrophils # (Auto) 12.9 x10^3/uL (1.8-7.7) Lymphocytes # (Auto) 1.4 x10^3/uL (1.0-4.8) Monocytes # (Auto) 1.1 x10^3/uL (0.0-1.1) Eosinophils # (Auto) 0.4 x10^3/uL (0.0-0.7) Basophils # (Auto) 0.1 x10^3/uL (0.0-0.2) Segmented Neutrophils % 84 % (35-66) Band Neutrophils % 1 % (0-9) Lymphocytes % 8 % (24-48) Monocytes % 5 % (0-10) Eosinophils % 1 % (0-5) Basophils % 1 % (0-3) Platelet Estimate Adequate (ADEQUATE) Sodium Level 131 mmol/L (136-145) Potassium Level 6.4 mmol/L (3.5-5.1) Chloride Level 94 mmol/L (98-107) Carbon Dioxide Level 30 mmol/L (21-32) Anion Gap 7 (6-14) Blood Urea Nitrogen 65 mg/dL (8-26) Creatinine 9.3 mg/dL (0.7-1.3) Estimated GFR (Cockcroft-Gault) 5.6 BUN/Creatinine Ratio 7 (6-20) Glucose Level 142 mg/dL (70-99) Calcium Level 9.3 mg/dL (8.5-10.1) Total Bilirubin 0.5 mg/dL (0.2-1.0) Aspartate Amino Transf (AST/SGOT) 15 U/L (15-37) Alanine Aminotransferase (ALT/SGPT) 11 U/L (16-63) Alkaline Phosphatase 81 U/L (46-116) Total Protein 7.5 g/dL (6.4-8.2) Albumin 3.4 g/dL (3.4-5.0) Albumin/Globulin Ratio 0.8 (1.0-1.7) Glucose (Fingerstick) 131 mg/dL (70-99) 143 mg/dL (70-99) Test 05/28/19 12:25 05/29/19 05:00 Lactic Acid Level 0.5 mmol/L (0.4-2.0) White Blood Count 9.6 x10^3/uL (4.0-11.0) Red Blood Count 3.11 x10^6/uL (4.30-5.70) Hemoglobin 10.6 g/dL (13.0-17.5) Hematocrit 31.2 % (39.0-53.0) Mean Corpuscular Volume 100 fL (79-100) Mean Corpuscular Hemoglobin 34 pg (25-35) Mean Corpuscular Hemoglobin Concent 34 g/dL (31-37) Red Cell Distribution Width 16.1 % (11.5-14.5) Platelet Count 237 x10^3/uL (140-400) Neutrophils (%) (Auto) 76 % (31-73) Lymphocytes (%) (Auto) 11 % (24-48) Monocytes (%) (Auto) 9 % (0-9) Eosinophils (%) (Auto) 3 % (0-3) Basophils (%) (Auto) 1 % (0-3) Neutrophils # (Auto) 7.4 x10^3/uL (1.8-7.7) Lymphocytes # (Auto) 1.1 x10^3/uL (1.0-4.8) Monocytes # (Auto) 0.8 x10^3/uL (0.0-1.1) Eosinophils # (Auto) 0.3 x10^3/uL (0.0-0.7) Basophils # (Auto) 0.1 x10^3/uL (0.0-0.2) Sodium Level 135 mmol/L (136-145) Potassium Level 4.9 mmol/L (3.5-5.1) Chloride Level 96 mmol/L (98-107) Carbon Dioxide Level 28 mmol/L (21-32) Anion Gap 11 (6-14) Blood Urea Nitrogen 45 mg/dL (8-26) Creatinine 7.4 mg/dL (0.7-1.3) Estimated GFR (Cockcroft-Gault) 7.3 Glucose Level 106 mg/dL (70-99) Calcium Level 9.2 mg/dL (8.5-10.1) Laboratory Tests Test 05/28/19 11:40 05/28/19 12:25 05/29/19 05:00 Glucose (Fingerstick) 143 mg/dL (70-99) Lactic Acid Level 0.5 mmol/L (0.4-2.0) White Blood Count 9.6 x10^3/uL (4.0-11.0) Red Blood Count 3.11 x10^6/uL (4.30-5.70) Hemoglobin 10.6 g/dL (13.0-17.5) Hematocrit 31.2 % (39.0-53.0) Mean Corpuscular Volume 100 fL (79-100) Mean Corpuscular Hemoglobin 34 pg (25-35) Mean Corpuscular Hemoglobin Concent 34 g/dL (31-37) Red Cell Distribution Width 16.1 % (11.5-14.5) Platelet Count 237 x10^3/uL (140-400) Neutrophils (%) (Auto) 76 % (31-73) Lymphocytes (%) (Auto) 11 % (24-48) Monocytes (%) (Auto) 9 % (0-9) Eosinophils (%) (Auto) 3 % (0-3) Basophils (%) (Auto) 1 % (0-3) Neutrophils # (Auto) 7.4 x10^3/uL (1.8-7.7) Lymphocytes # (Auto) 1.1 x10^3/uL (1.0-4.8) Monocytes # (Auto) 0.8 x10^3/uL (0.0-1.1) Eosinophils # (Auto) 0.3 x10^3/uL (0.0-0.7) Basophils # (Auto) 0.1 x10^3/uL (0.0-0.2) Sodium Level 135 mmol/L (136-145) Potassium Level 4.9 mmol/L (3.5-5.1) Chloride Level 96 mmol/L (98-107) Carbon Dioxide Level 28 mmol/L (21-32) Anion Gap 11 (6-14) Blood Urea Nitrogen 45 mg/dL (8-26) Creatinine 7.4 mg/dL (0.7-1.3) Estimated GFR (Cockcroft-Gault) 7.3 Glucose Level 106 mg/dL (70-99) Calcium Level 9.2 mg/dL (8.5-10.1) Medications Current Medications Ceftriaxone Sodium (Rocephin) 1 gm 1X ONCE IVP Last administered on 05/28/19at 00:54; Start 05/28/19 at 01:00; Stop 05/28/19 at 01:01; Status DC Ondansetron HCl (Zofran) 4 mg PRN Q8HRS PRN IV NAUSEA/VOMITING 1ST CHOICE; Start 05/28/19 at 01:00; Stop 05/29/19 at 00:59; Status DC Morphine Sulfate (Morphine Sulfate) 4 mg PRN Q2HR PRN IV SEVERE PAIN 7-10; Start 05/28/19 at 01:00; Stop 05/29/19 at 00:59; Status DC Calcium Gluconate (Calcium Gluconate) 1,000 mg 1X ONCE IVP Last administered on 05/28/19at 02:42; Start 05/28/19 at 01:15; Stop 05/28/19 at 01:16; Status DC Sodium Bicarbonate (Sodium Bicarb Adult 8.4% Syr) 50 meq 1X ONCE IV ; Start 05/28/19 at 01:15; Stop 05/28/19 at 01:16; Status DC Dextrose (Dextrose 50%-Water Syringe) 25 gm 1X ONCE IV ; Start 05/28/19 at 01:15; Stop 05/28/19 at 01:16; Status DC Insulin Human Regular (HumuLIN R VIAL) 10 unit 1X ONCE IV ; Start 05/28/19 at 01:15; Stop 05/28/19 at 01:16; Status DC Sodium Polystyrene Sulfonate (Kayexalate) 30 gm 1X ONCE PO ; Start 05/28/19 at 01:15; Stop 05/28/19 at 01:16; Status DC Aspirin (Ecotrin) 81 mg DAILY PO Last administered on 05/28/19at 10:37; Start 05/28/19 at 09:00 Clonidine HCl (Catapres) 0.1 mg PRN Q4HRS PRN PO HYPERTENSION; Start 05/28/19 at 01:45 Vitamin B Complex/ Vitamin C (Suzy-Lily) 1 tab DAILY PO Last administered on 05/28/19at 10:36; Start 05/28/19 at 09:00 Acetaminophen/ Hydrocodone Bitart (Lortab 10/325) 1 tab PRN Q6HRS PRN PO SEVERE PAIN 7-10 Last administered on 05/28/19at 21:07; Start 05/28/19 at 01:45 Metoprolol Succinate (Toprol Xl) 12.5 mg QTUTHSA PO Last administered on 05/28/19at 17:18; Start 05/28/19 at 16:00 Trazodone HCl (Desyrel) 100 mg QHS PO Last administered on 05/28/19at 21:07; Start 05/28/19 at 21:00 Calcium Acetate (Phoslo) 667 mg TIDWMEALS PO Last administered on 05/28/19at 17:17; Start 05/28/19 at 08:00 Vitamin D (Vitamin D3) 1,000 unit DAILY PO Last administered on 05/28/19at 10:36; Start 05/28/19 at 09:00 Cyclobenzaprine HCl (Flexeril) 5 mg QHS PO Last administered on 05/28/19at 21:07; Start 05/28/19 at 21:00 Lisinopril (Prinivil) 2.5 mg DAILY PO Last administered on 05/28/19at 10:37; Start 05/28/19 at 09:00 Non-Formulary Medication ([Auryxia] ) 2 tab TIDWMEALS .ROUTE ; Start 05/28/19 at 08:00; Status UNV Insulin Human Lispro (HumaLOG) 0-7 UNITS TIDWMEALS SQ ; Start 05/28/19 at 08:00 Dextrose (Dextrose 50%-Water Syringe) 12.5 gm PRN Q15MIN PRN IV SEE COMMENTS; Start 05/28/19 at 02:00 Dextrose (Iv Dextrose 5%) 250 ml PRN Q15MIN PRN IV SEE COMMENTS; Start 05/28/19 at 02:00 Trazodone HCl (Desyrel) 100 mg 1X ONCE PO Last administered on 05/28/19at 02:31; Start 05/28/19 at 03:00; Stop 05/28/19 at 03:01; Status DC Cyclobenzaprine HCl (Flexeril) 5 mg 1X ONCE PO Last administered on 05/28/19at 02:31; Start 05/28/19 at 03:00; Stop 05/28/19 at 03:01; Status DC Piperacillin Sod/ Tazobactam Sod (Zosyn Per Pharmacy) 1 each PRN DAILY PRN MC SEE COMMENTS; Start 05/28/19 at 11:45 Darbepoetin Be (ARANESP for DIALYSIS PTS) 60 mcg WEEKLYHS SQ Last administered on 05/28/19at 21:07; Start 05/28/19 at 21:00 Piperacillin Sod/ Tazobactam Sod 2.25 gm/Sodium Chloride 50 ml @ 100 mls/hr Q8HRS IV Last administered on 05/29/19at 06:02; Start 05/28/19 at 14:00 Sodium Chloride 1,000 ml @ 1,000 mls/hr Q1H PRN IV hypotension; Start 05/29/19 at 09:17; Stop 05/29/19 at 15:16 Albumin Human 200 ml @ 200 mls/hr 1X PRN PRN IV Hypotension; Start 05/29/19 at 09:30; Stop 05/29/19 at 15:29 Acetaminophen (Tylenol) 500 mg 1X PRN PRN PO MILD PAIN / TEMP; Start 05/29/19 at 09:30; Stop 05/30/19 at 09:29 Diphenhydramine HCl (Benadryl) 25 mg 1X PRN PRN IV ITCHING; Start 05/29/19 at 09:30; Stop 05/30/19 at 09:29 Diphenhydramine HCl (Benadryl) 25 mg 1X PRN PRN IV ITCHING; Start 05/29/19 at 09:30; Stop 05/30/19 at 09:29 Sodium Chloride 1,000 ml @ 400 mls/hr Q2H30M PRN IV PATENCY; Start 05/29/19 at 09:17; Stop 05/29/19 at 21:16 Info (PHARMACY MONITORING -- do not chart) 1 each PRN DAILY PRN MC SEE COMMENTS; Start 05/29/19 at 09:30 Active Scripts Active Reported Trazodone Hcl 100 Mg Tablet 1 Tab PO QHS Cyclobenzaprine Hcl 5 Mg Tablet 1 Tab PO QHS Clonidine Hcl 0.1 Mg Tablet 1 Tab PO PRN Q4HRS PRN Vitamin D3 (Cholecalciferol (Vitamin D3)) 2,000 Unit Tablet 1,000 Unit PO DAILY [Auryxia] 2 Tab TIDWMEALS Aspir-Low (Aspirin) 81 Mg Tablet.dr 1 Tab PO DAILY Metoprolol Succinate ( Xl ) (Metoprolol Succinate) 25 Mg Tab.er.24h 12.5 Mg PO QTUTHSA Nephro-Lily Tablet (Folic Acid/Vitamin B Comp W-C) 0.8 Mg Tablet 1 Tab PO DAILY Lisinopril 2.5 Mg Tablet 1 Tab PO DAILY Hydrocodone-Apap 10-325 (Hydrocodone Bit/Acetaminophen) 1 Each Tablet 1 Tab PO PRN Q6HRS PRN Calcium Acetate 667 Mg Tablet 667 Mg PO TIDWMEALS [place] 10-325 Tablet (Acetaminophen/Hydrocodone Bitart) 1 Each Tablet 1 Tab PO PRN Q6HRS PRN Nateglinide 120 Mg Tablet 120 Mg PO BID Vitals/I & O Vital Sign - Last 24 Hours 05/28/19 05/28/19 05/28/19 05/28/19 10:37 11:00 16:10 17:18 Temp 98.1 98.3 98.1 98.3 Pulse 96 69 81 81 Resp 18 18 B/P (MAP) 100/52 128/93 (105) 143/74 (97) 143/74 Pulse Ox 93 93 O2 Delivery Room Air Room Air 05/28/19 05/28/19 05/28/19 05/28/19 19:00 20:00 21:07 22:07 Temp 98.6 98.6 Pulse 83 Resp 18 B/P (MAP) 110/55 (73) Pulse Ox 96 93 93 O2 Delivery Room Air Room Air Room Air Room Air 05/28/19 05/29/19 05/29/19 05/29/19 23:00 03:00 07:08 07:50 Temp 97.9 98.5 99.2 97.9 98.5 99.2 Pulse 86 79 72 Resp 18 18 18 B/P (MAP) 121/58 (79) 124/65 (84) 97/54 (68) Pulse Ox 94 95 93 O2 Delivery Room Air Room Air Room Air Room Air Intake and Output 05/28/19 05/28/19 05/29/19 15:00 23:00 07:00 Intake Total 240 ml 150 ml 50 ml Balance 240 ml 150 ml 50 ml GEOVANNA LAZCANO MD May 29, 2019 10:09
--- NOTE | 2019-05-29 12:45 | PDOC ---
Renal-Progress Notes Subjective Notes Notes NO NEW COMPLAINTS History of Present Illness Hx of present illness STABLE Vitals Vitals Vital Signs Date Time Temp Pulse Resp B/P (MAP) Pulse Ox O2 Delivery O2 Flow Rate FiO2 05/29/19 07:50 Room Air 05/29/19 07:08 99.2 72 18 97/54 (68) 93 99.2 Weight Weight [ ] I.O. Intake and Output Intake and Output 05/29/19 07:00 Intake Total 440 ml Balance 440 ml Intake Oral 340 ml IV Total 100 ml # Voids 1 Labs Labs Laboratory Tests Test 05/29/19 05:00 White Blood Count 9.6 x10^3/uL (4.0-11.0) Red Blood Count 3.11 x10^6/uL (4.30-5.70) Hemoglobin 10.6 g/dL (13.0-17.5) Hematocrit 31.2 % (39.0-53.0) Mean Corpuscular Volume 100 fL (79-100) Mean Corpuscular Hemoglobin 34 pg (25-35) Mean Corpuscular Hemoglobin Concent 34 g/dL (31-37) Red Cell Distribution Width 16.1 % (11.5-14.5) Platelet Count 237 x10^3/uL (140-400) Neutrophils (%) (Auto) 76 % (31-73) Lymphocytes (%) (Auto) 11 % (24-48) Monocytes (%) (Auto) 9 % (0-9) Eosinophils (%) (Auto) 3 % (0-3) Basophils (%) (Auto) 1 % (0-3) Neutrophils # (Auto) 7.4 x10^3/uL (1.8-7.7) Lymphocytes # (Auto) 1.1 x10^3/uL (1.0-4.8) Monocytes # (Auto) 0.8 x10^3/uL (0.0-1.1) Eosinophils # (Auto) 0.3 x10^3/uL (0.0-0.7) Basophils # (Auto) 0.1 x10^3/uL (0.0-0.2) Sodium Level 135 mmol/L (136-145) Potassium Level 4.9 mmol/L (3.5-5.1) Chloride Level 96 mmol/L (98-107) Carbon Dioxide Level 28 mmol/L (21-32) Anion Gap 11 (6-14) Blood Urea Nitrogen 45 mg/dL (8-26) Creatinine 7.4 mg/dL (0.7-1.3) Estimated GFR (Cockcroft-Gault) 7.3 Glucose Level 106 mg/dL (70-99) Calcium Level 9.2 mg/dL (8.5-10.1) Review of Systems Constitutional: yes: weakness, alert, oriented Ears/Nose/Throat: Yes: no symptom reported Pulmonary: Yes no symptom reported Gastrointestional: Yes: constipation Genitourinary: Yes: hematuria Musculoskeletal: Yes: muscle stiffness Skin: Yes no symptom reported Psychiatric/Neurological: Yes: no symptom reported Endocrine: Yes: no symptom reported Physical Exam General Appearance: no apparent distress Skin: warm Respiratory: decreased breath sounds Heart: S1S2 Abdomen: soft, bowel sounds present Genitourinary: bladder flat Extremities: pulses present Neurology: alert Assessment Assessment IMP HEMATURIA BILATERAL RENAL CYST VS MASSES ANEMIA LEUCOCYTOSIS HYPERKALEMIA HTN HX ESRD-MWF ENC COMPLIANCE UTI PLAN ANTIBIOTICS HD TODAY UF TO DW WILL NEED OP EVAL BY UROLOGY START ARANESP RENAL SONOGRAM ENC COMPLIANCE DAMARIS LEAL MD May 29, 2019 12:45
[2019-05-29] MEDS: ASPIRIN ENTERIC COATED 81 MG TABLET.DR. PO SCH (12:49)
[2019-05-29] MEDS: CHOLECALCIFEROL (VITAMIN D3) 1,000 UNIT TABLET PO SCH (12:49)
[2019-05-29] MEDS: HYDROcodone/APAP 10/325 1 TAB TABLET PO PRN ×2 (12:49→21:34)
[2019-05-29] MEDS: FOLIC/VIT B COMP W-C (RENAL) TABLET. PO SCH (12:53)
[2019-05-29] MEDS: LISINOPRIL 5 MG TABLET. PO SCH (12:53)
--- NOTE | 2019-05-29 14:06 | NUR ---
SS following for discharge planning. SS reviewed pt chart. Pt is from home with spouse and is currently on room air. Pt has outpatient dialysis in the community at [facility], ; fax [phone], Monday, Monday, and Monday at 1015. SS will continue to follow for discharge planning.
[2019-05-29 14:22] VITALS: BP 137/84
--- NOTE | 2019-05-29 16:47 | NUR ---
Wound Care: Consult to eval and treat for multiple wounds to L hand and R foot. All wounds pictured and measured (see detailed assessment). L 4th finger wound reportedly from trauma from getting it caught in the wheel of his WC some time ago. Tip of finger is completely dry, dark brown, necrotic tissue to the first knuckle, with bone exposed; periwound red, swollen, and painful to touch. Small eschar area noted to nail bed of L 3rd finger, reportedly secondary to fungal infection with removal of nail by patients PCP. Dry, stable necrotic tissue to distal R great toe/1st metatarsal head; periwound skin scaly and dry. R heel intact with pink-purple non-blanchable area, scaling dry skin. R heel painted with skin prep and covered with foam dressing for protection. All other listed wounds dressed with iodoflex, and telfa dressings. Will check chart for possible changes in plan of care, otherwise plan to follow up on 06/05/2019 Addendum: 05/29/19 at 1658 by SOWMYA STAPLETON RN No other open areas noted on head to toe inspection, education provided regarding turning to avoid pressure related skin breakdown.
[2019-05-29 18:36] VITALS: BP 122/51
[2019-05-29] MEDS: traZODone 100 MG TABLET. PO SCH (21:33)
[2019-05-29] MEDS: CYCLOBENZAPRINE 10 MG TABLET. PO SCH (21:33)
[2019-05-29 23:20] VITALS: BP 97/40
[2019-05-30 02:15] VITALS: BP 118/61
[2019-05-30] MEDS: HYDROcodone/APAP 10/325 1 TAB TABLET PO PRN ×3 (04:52→19:46)
[2019-05-30] MEDS: PIPERACILLIN/TAZOBACTAM 2.25 GM in IV NORMAL SALINE 50ML 50 ML IV SCH (06:11)
[2019-05-30 07:00] VITALS: BP 114/54
[2019-05-30] MEDS: INSULIN LISPRO 300 UNITS/3 ML VIAL. SQ SCH ×3 (08:00→16:46)
[2019-05-30] MEDS: AURYXIA SCH ×3 (08:00→16:42)
--- NOTE | 2019-05-30 08:37 | PDOC ---
Infectious Disease Note Vital Sign Vital Signs Vital Signs Date Time Temp Pulse Resp B/P (MAP) Pulse Ox O2 Delivery O2 Flow Rate FiO2 05/30/19 07:00 97.5 79 20 114/54 (74) 93 Nasal Cannula 2.0 97.5 Labs Lab Laboratory Tests Test 05/29/19 12:57 05/29/19 16:44 05/29/19 21:13 Glucose (Fingerstick) 89 mg/dL (70-99) 120 mg/dL (70-99) 106 mg/dL (70-99) Micro Microbiology 05/28/19 Blood Culture - Preliminary, Resulted NO GROWTH AFTER 1 DAY Objective Assessment pt seen, consult dictated Plan Plan of Care / ANALISA BROWN MD May 30, 2019 08:37
[2019-05-30] MEDS: CALCIUM ACETATE 667 MG CAPSULE PO SCH ×3 (09:01→16:44)
[2019-05-30] MEDS: CHOLECALCIFEROL (VITAMIN D3) 1,000 UNIT TABLET PO SCH (09:01)
[2019-05-30] MEDS: LISINOPRIL 5 MG TABLET. PO SCH (09:01)
[2019-05-30] MEDS: ASPIRIN ENTERIC COATED 81 MG TABLET.DR. PO SCH (09:01)
[2019-05-30] MEDS: FOLIC/VIT B COMP W-C (RENAL) TABLET. PO SCH (09:01)
--- NOTE | 2019-05-30 09:12 | PDOC ---
PROGRESS NOTES History of Present Illness History of Present Illness Assessment/Plan Past Medical/Surgical History: PMH/PSH: Past Medical History: A-Fib, COPD, High Cholesterol, Heart Disease, Kidney Stone, Renal Failure Additional Past Medical Histor: KIDNEY FAILURE Past Surgical History: Other Additional Past Surgical Histo: VAS CATH,PACER Allergies: Allergies: Coded Allergies: No Known Drug Allergies (Unverified , 12/24/15) Family History: Family History: Diabetes Social History: Social Hisoty: He does not drink smoke or take drugs DISCHARGE DX Hematuria sepsis pyelonephritis and a elderly male who has the above-noted comorbidities esrd Plan D/C ON AUGMENTIN 500MG PO BID Gentle IV fluids if nephrology agrees Consult ID and nephrology Home meds DVT prophylaxis Blood cultures Trend labs Full code When necessary Tylenol D/C PLANNING 32 MIN Vitals Vitals Vital Signs Date Time Temp Pulse Resp B/P (MAP) Pulse Ox O2 Delivery O2 Flow Rate FiO2 05/30/19 09:01 79 114/54 05/30/19 07:00 97.5 20 93 Nasal Cannula 2.0 97.5 Physical Exam General: Alert, Oriented X3, Cooperative, No acute distress Heart: Regular rate, Normal S1 Lungs: Clear Abdomen: Normal bowel sounds, Soft, No tenderness Extremities: No clubbing, No cyanosis Skin: No breakdown Labs LABS Laboratory Tests Test 05/29/19 12:57 05/29/19 16:44 05/29/19 21:13 05/30/19 08:01 Glucose (Fingerstick) 89 mg/dL (70-99) 120 mg/dL (70-99) 106 mg/dL (70-99) 89 mg/dL (70-99) Comment Review of Relevant I have reviewed the following items breanna (where applicable) has been applied. Labs Laboratory Tests Test 05/28/19 11:40 05/28/19 12:25 05/29/19 05:00 05/29/19 12:57 Glucose (Fingerstick) 143 mg/dL (70-99) 89 mg/dL (70-99) Lactic Acid Level 0.5 mmol/L (0.4-2.0) White Blood Count 9.6 x10^3/uL (4.0-11.0) Red Blood Count 3.11 x10^6/uL (4.30-5.70) Hemoglobin 10.6 g/dL (13.0-17.5) Hematocrit 31.2 % (39.0-53.0) Mean Corpuscular Volume 100 fL (79-100) Mean Corpuscular Hemoglobin 34 pg (25-35) Mean Corpuscular Hemoglobin Concent 34 g/dL (31-37) Red Cell Distribution Width 16.1 % (11.5-14.5) Platelet Count 237 x10^3/uL (140-400) Neutrophils (%) (Auto) 76 % (31-73) Lymphocytes (%) (Auto) 11 % (24-48) Monocytes (%) (Auto) 9 % (0-9) Eosinophils (%) (Auto) 3 % (0-3) Basophils (%) (Auto) 1 % (0-3) Neutrophils # (Auto) 7.4 x10^3/uL (1.8-7.7) Lymphocytes # (Auto) 1.1 x10^3/uL (1.0-4.8) Monocytes # (Auto) 0.8 x10^3/uL (0.0-1.1) Eosinophils # (Auto) 0.3 x10^3/uL (0.0-0.7) Basophils # (Auto) 0.1 x10^3/uL (0.0-0.2) Sodium Level 135 mmol/L (136-145) Potassium Level 4.9 mmol/L (3.5-5.1) Chloride Level 96 mmol/L (98-107) Carbon Dioxide Level 28 mmol/L (21-32) Anion Gap 11 (6-14) Blood Urea Nitrogen 45 mg/dL (8-26) Creatinine 7.4 mg/dL (0.7-1.3) Estimated GFR (Cockcroft-Gault) 7.3 Glucose Level 106 mg/dL (70-99) Calcium Level 9.2 mg/dL (8.5-10.1) Test 05/29/19 16:44 05/29/19 21:13 05/30/19 08:01 Glucose (Fingerstick) 120 mg/dL (70-99) 106 mg/dL (70-99) 89 mg/dL (70-99) Laboratory Tests Test 05/29/19 12:57 05/29/19 16:44 05/29/19 21:13 05/30/19 08:01 Glucose (Fingerstick) 89 mg/dL (70-99) 120 mg/dL (70-99) 106 mg/dL (70-99) 89 mg/dL (70-99) Microbiology 05/28/19 Blood Culture - Preliminary, Resulted NO GROWTH AFTER 1 DAY Medications Current Medications Ceftriaxone Sodium (Rocephin) 1 gm 1X ONCE IVP Last administered on 05/28/19at 00:54; Start 05/28/19 at 01:00; Stop 05/28/19 at 01:01; Status DC Ondansetron HCl (Zofran) 4 mg PRN Q8HRS PRN IV NAUSEA/VOMITING 1ST CHOICE; Start 05/28/19 at 01:00; Stop 05/29/19 at 00:59; Status DC Morphine Sulfate (Morphine Sulfate) 4 mg PRN Q2HR PRN IV SEVERE PAIN 7-10; Start 05/28/19 at 01:00; Stop 05/29/19 at 00:59; Status DC Calcium Gluconate (Calcium Gluconate) 1,000 mg 1X ONCE IVP Last administered on 05/28/19at 02:42; Start 05/28/19 at 01:15; Stop 05/28/19 at 01:16; Status DC Sodium Bicarbonate (Sodium Bicarb Adult 8.4% Syr) 50 meq 1X ONCE IV ; Start 05/28/19 at 01:15; Stop 05/28/19 at 01:16; Status DC Dextrose (Dextrose 50%-Water Syringe) 25 gm 1X ONCE IV ; Start 05/28/19 at 01:15; Stop 05/28/19 at 01:16; Status DC Insulin Human Regular (HumuLIN R VIAL) 10 unit 1X ONCE IV ; Start 05/28/19 at 01:15; Stop 05/28/19 at 01:16; Status DC Sodium Polystyrene Sulfonate (Kayexalate) 30 gm 1X ONCE PO ; Start 05/28/19 at 01:15; Stop 05/28/19 at 01:16; Status DC Aspirin (Ecotrin) 81 mg DAILY PO Last administered on 05/30/19at 09:01; Start 05/28/19 at 09:00 Clonidine HCl (Catapres) 0.1 mg PRN Q4HRS PRN PO HYPERTENSION; Start 05/28/19 at 01:45 Vitamin B Complex/ Vitamin C (Suzy-Lily) 1 tab DAILY PO Last administered on 05/30/19 09:01; Start 05/28/19 at 09:00 Acetaminophen/ Hydrocodone Bitart (Lortab 10/325) 1 tab PRN Q6HRS PRN PO SEVERE PAIN 7-10 Last administered on 05/30/19 04:52; Start 05/28/19 at 01:45 Metoprolol Succinate (Toprol Xl) 12.5 mg QTUTHSA PO Last administered on 05/28/19 17:18; Start 05/28/19 at 16:00 Trazodone HCl (Desyrel) 100 mg QHS PO Last administered on 05/29/19 21:33; Start 05/28/19 at 21:00 Calcium Acetate (Phoslo) 667 mg TIDWMEALS PO Last administered on 05/30/19 09:01; Start 05/28/19 at 08:00 Vitamin D (Vitamin D3) 1,000 unit DAILY PO Last administered on 05/30/19 09:01; Start 05/28/19 at 09:00 Cyclobenzaprine HCl (Flexeril) 5 mg QHS PO Last administered on 05/29/19 21:33; Start 05/28/19 at 21:00 Lisinopril (Prinivil) 2.5 mg DAILY PO Last administered on 05/30/19 09:01; Start 05/28/19 at 09:00 Non-Formulary Medication ([Auryxia] ) 2 tab TIDWMEALS .ROUTE ; Start 05/28/19 at 08:00; Status UNV Insulin Human Lispro (HumaLOG) 0-7 UNITS TIDWMEALS SQ ; Start 05/28/19 at 08:00 Dextrose (Dextrose 50%-Water Syringe) 12.5 gm PRN Q15MIN PRN IV SEE COMMENTS; Start 05/28/19 at 02:00 Dextrose (Iv Dextrose 5%) 250 ml PRN Q15MIN PRN IV SEE COMMENTS; Start 05/28/19 at 02:00 Trazodone HCl (Desyrel) 100 mg 1X ONCE PO Last administered on 05/28/19at 02:31; Start 05/28/19 at 03:00; Stop 05/28/19 at 03:01; Status DC Cyclobenzaprine HCl (Flexeril) 5 mg 1X ONCE PO Last administered on 05/28/19at 02:31; Start 05/28/19 at 03:00; Stop 05/28/19 at 03:01; Status DC Piperacillin Sod/ Tazobactam Sod (Zosyn Per Pharmacy) 1 each PRN DAILY PRN MC SEE COMMENTS; Start 05/28/19 at 11:45; Stop 05/30/19 at 08:44; Status DC Darbepoetin Be (ARANESP for DIALYSIS PTS) 60 mcg WEEKLYHS SQ Last administered on 05/28/19at 21:07; Start 05/28/19 at 21:00 Piperacillin Sod/ Tazobactam Sod 2.25 gm/Sodium Chloride 50 ml @ 100 mls/hr Q8HRS IV Last administered on 05/30/19at 06:11; Start 05/28/19 at 14:00; Stop 05/30/19 at 08:44; Status DC Sodium Chloride 1,000 ml @ 1,000 mls/hr Q1H PRN IV hypotension; Start 05/29/19 at 09:17; Stop 05/29/19 at 15:16; Status DC Albumin Human 200 ml @ 200 mls/hr 1X PRN PRN IV Hypotension; Start 05/29/19 at 09:30; Stop 05/29/19 at 15:29; Status DC Acetaminophen (Tylenol) 500 mg 1X PRN PRN PO MILD PAIN / TEMP; Start 05/29/19 at 09:30; Stop 05/30/19 at 09:29 Diphenhydramine HCl (Benadryl) 25 mg 1X PRN PRN IV ITCHING; Start 05/29/19 at 09:30; Stop 05/30/19 at 09:29 Diphenhydramine HCl (Benadryl) 25 mg 1X PRN PRN IV ITCHING; Start 05/29/19 at 09:30; Stop 05/30/19 at 09:29 Sodium Chloride 1,000 ml @ 400 mls/hr Q2H30M PRN IV PATENCY; Start 05/29/19 at 09:17; Stop 05/29/19 at 21:16; Status DC Info (PHARMACY MONITORING -- do not chart) 1 each PRN DAILY PRN MC SEE COMMENTS; Start 05/29/19 at 09:30 Amoxicillin/ Clavulanate Potassium (Augmentin 500/ 125mg) 1 tab BID PO ; Start 05/30/19 at 21:00 Active Scripts Active Reported Trazodone Hcl 100 Mg Tablet 1 Tab PO QHS Cyclobenzaprine Hcl 5 Mg Tablet 1 Tab PO QHS Clonidine Hcl 0.1 Mg Tablet 1 Tab PO PRN Q4HRS PRN Vitamin D3 (Cholecalciferol (Vitamin D3)) 2,000 Unit Tablet 1,000 Unit PO DAILY [Auryxia] 2 Tab TIDWMEALS Aspir-Low (Aspirin) 81 Mg Tablet.dr 1 Tab PO DAILY Metoprolol Succinate ( Xl ) (Metoprolol Succinate) 25 Mg Tab.er.24h 12.5 Mg PO QTUTHSA Nephro-Lily Tablet (Folic Acid/Vitamin B Comp W-C) 0.8 Mg Tablet 1 Tab PO DAILY Lisinopril 2.5 Mg Tablet 1 Tab PO DAILY Hydrocodone-Apap 10-325 (Hydrocodone Bit/Acetaminophen) 1 Each Tablet 1 Tab PO PRN Q6HRS PRN Calcium Acetate 667 Mg Tablet 667 Mg PO TIDWMEALS [place] 10-325 Tablet (Acetaminophen/Hydrocodone Bitart) 1 Each Tablet 1 Tab PO PRN Q6HRS PRN Nateglinide 120 Mg Tablet 120 Mg PO BID Vitals/I & O Vital Sign - Last 24 Hours 05/29/19 05/29/19 05/29/19 05/29/19 12:49 12:53 13:52 14:22 Temp 98.3 98.3 Pulse 83 83 Resp 18 B/P (MAP) 140/67 137/84 (101) Pulse Ox 93 93 94 O2 Delivery Room Air Room Air Room Air 05/29/19 05/29/19 05/29/19 05/29/19 18:36 20:00 21:34 22:34 Temp 98.2 98.2 Pulse 67 Resp 18 B/P (MAP) 122/51 (74) Pulse Ox 94 O2 Delivery Room Air Room Air Room Air Room Air 05/29/19 05/30/19 05/30/19 05/30/19 23:20 02:15 04:52 05:52 Temp 99.4 98.6 99.4 98.6 Pulse 74 88 Resp 18 20 B/P (MAP) 97/40 (59) 118/61 (80) Pulse Ox 94 93 93 O2 Delivery Room Air Room Air Room Air Room Air 05/30/19 05/30/19 07:00 09:01 Temp 97.5 97.5 Pulse 79 79 Resp 20 B/P (MAP) 114/54 (74) 114/54 Pulse Ox 93 O2 Delivery Nasal Cannula O2 Flow Rate 2.0 Intake and Output 05/29/19 05/29/19 05/30/19 15:00 23:00 07:00 Intake Total 0 ml 450 ml 100 ml Balance 0 ml 450 ml 100 ml GEOVANNA LAZCANO MD May 30, 2019 09:12
--- NOTE | 2019-05-30 10:00 | CONS ---
DATE OF CONSULTATION: 05/30/2019 REQUESTING PHYSICIAN: Dr. Prater. REASON FOR CONSULTATION: Urinary tract infection/pyelonephritis. HISTORY OF PRESENT ILLNESS: This is a 68-year-old gentleman who came in with urinating blood. The patient did have burning with urination. The patient denied any back pain. Denied any nausea, vomiting, or diarrhea. Denied any fever. The patient did not have any fever, but he did have a white count of 15.9, normal lactic acid and urinalysis showed too numerous to count rbc's and 20-40 wbc's. The patient has been put on piperacillin-tazobactam and he is feeling much better. There is no more burning with urination and he is not getting any blood with urination. The patient does not have any other complaints. PAST MEDICAL HISTORY: Positive for end-stage renal disease, on hemodialysis, hyperkalemia, , AFib, COPD, coronary artery disease, and kidney stones. SOCIAL HISTORY: Negative for smoking, alcohol use or drug use. ALLERGIES: No known drug allergies. CURRENT MEDICATIONS: Reviewed. REVIEW OF SYSTEMS: As per the HPI. All other systems reviewed and are negative. PHYSICAL EXAMINATION: GENERAL: Alert, oriented gentleman, not in distress. VITAL SIGNS: Stable, afebrile. HEENT: Both pupils are round and reacting. No conjunctival lesion, no lesion in the mouth. NECK: Supple, no JVP, no lymphadenopathy. LUNGS: Clear. HEART: S1, S2 regular. ABDOMEN: Soft, nontender, no organomegaly. The patient does not have any CVA tenderness. EXTREMITIES: No edema or cyanosis. SKIN: Unremarkable. NEUROLOGIC: Alert, awake and appropriate. No focal neurologic deficit. LABORATORY DATA: White count is 15.9, which is now down to 9.6. BUN and creatinine is 45 and 7.4. Lactic acid is 0.5. Urinalysis as I mentioned, blood cultures and urine culture so far negative. Abdominal CT showed cholelithiasis, thickening of the bladder wall, and spinal stenosis. IMPRESSION: 1. Hematuria. 2. Urinary tract infection. 3. Leukocytosis. 4. End-stage renal disease, on hemodialysis. 5. Chronic obstructive pulmonary disease. 6. Atrial fibrillation. RECOMMENDATIONS: Zosyn can be changed to p.o. Augmentin for discharge. The patient if continues to have problem with hematuria, the patient should see a urologist for cystoscopy. Thank you very much, Dr. Prater, for giving me the opportunity to participate in this patient's care. We will also check just to make sure there is no overflow incontinence by retention. ANALISA BROWN MD DR: VIVIENNE/caterina JOB#: [id number] / [id number]
[2019-05-30 11:00] VITALS: BP 105/60
--- NOTE | 2019-05-30 14:40 | PDOC ---
Renal-Progress Notes Subjective Notes Notes FEELING BETTER History of Present Illness Hx of present illness STABLE Vitals Vitals Vital Signs Date Time Temp Pulse Resp B/P (MAP) Pulse Ox O2 Delivery O2 Flow Rate FiO2 05/30/19 13:53 94 Room Air 2.0 05/30/19 11:00 97.9 73 20 105/60 (75) 97.9 Weight Weight [ ] I.O. Intake and Output Intake and Output 05/30/19 07:00 Intake Total 550 ml Balance 550 ml Intake Oral 500 ml IV Total 50 ml # Voids 4 Labs Labs Laboratory Tests Test 05/29/19 16:44 05/29/19 21:13 05/30/19 08:01 05/30/19 12:44 Glucose (Fingerstick) 120 mg/dL (70-99) 106 mg/dL (70-99) 89 mg/dL (70-99) 121 mg/dL (70-99) Micro Micro Microbiology 05/28/19 Blood Culture - Preliminary, Resulted NO GROWTH AFTER 2 DAYS Review of Systems Constitutional: yes: weakness, alert, oriented Ears/Nose/Throat: Yes: no symptom reported Pulmonary: Yes no symptom reported Gastrointestional: Yes: constipation Genitourinary: Yes: hematuria Musculoskeletal: Yes: muscle stiffness Skin: Yes no symptom reported Psychiatric/Neurological: Yes: no symptom reported Endocrine: Yes: no symptom reported Physical Exam General Appearance: no apparent distress Skin: warm Respiratory: decreased breath sounds Heart: S1S2 Abdomen: soft, bowel sounds present Genitourinary: bladder flat Extremities: pulses present Neurology: alert Assessment Assessment IMP HEMATURIA-BETTER BILATERAL RENAL CYST VS MASSES ANEMIA LEUCOCYTOSIS HYPERKALEMIA HTN HX ESRD-MWF ENC COMPLIANCE UTI PLAN ANTIBIOTICS HD TOMORROW WILL NEED OP EVAL BY UROLOGY OPO STARTED ARANESP RENAL SONOGRAM ENC COMPLIANCE DAMARIS LEAL MD May 30, 2019 14:40
[2019-05-30 15:00] VITALS: BP 111/64
[2019-05-30] MEDS ORDERED: MULTIVITAMIN with MINERAL TABLET. PO SCH (15:00)
--- NOTE | 2019-05-30 15:02 | PDOC3 ---
Discharge Summary Date of Admission: May 28, 2019 Date of Discharge: May 30, 2019 Follow-Up: 1-2 days Admitting Diagnosis comment: DISCHARGE DX Hematuria sepsis ACUTE pyelonephritis and a elderly male who has the above-noted comorbidities esrd Plan D/C ON AUGMENTIN 500MG PO BID Gentle IV fluids if nephrology agrees Consult ID and nephrology Home meds DVT prophylaxis Blood cultures Trend labs Full code When necessary Tylenol D/C PLANNING 32 MIN Vitals Vitals Vital Signs Date Time Temp Pulse Resp B/P (MAP) Pulse Ox O2 Delivery O2 Flow Rate FiO2 05/30/19 09:01 79 114/54 05/30/19 07:00 97.5 20 93 Nasal Cannula 2.0 97.5 Physical Exam General: Alert, Oriented X3, Cooperative, No acute distress Heart: Regular rate, Normal S1 Lungs: Clear Abdomen: Normal bowel sounds, Soft, No tenderness Extremities: No clubbing, No cyanosis Skin: No breakdown Brief Hospital Course Mr. Price is a 68 old [sex] who presented with [UTI, SEPSIS ] CONDITION AT DISCHARGE: Improved Discharge Medications Current Medications Ceftriaxone Sodium (Rocephin) 1 gm 1X ONCE IVP Last administered on 05/28/19at 00:54; Start 05/28/19 at 01:00; Stop 05/28/19 at 01:01; Status DC Ondansetron HCl (Zofran) 4 mg PRN Q8HRS PRN IV NAUSEA/VOMITING 1ST CHOICE; Start 05/28/19 at 01:00; Stop 05/29/19 at 00:59; Status DC Morphine Sulfate (Morphine Sulfate) 4 mg PRN Q2HR PRN IV SEVERE PAIN 7-10; Start 05/28/19 at 01:00; Stop 05/29/19 at 00:59; Status DC Calcium Gluconate (Calcium Gluconate) 1,000 mg 1X ONCE IVP Last administered on 05/28/19at 02:42; Start 05/28/19 at 01:15; Stop 05/28/19 at 01:16; Status DC Sodium Bicarbonate (Sodium Bicarb Adult 8.4% Syr) 50 meq 1X ONCE IV ; Start 05/28/19 at 01:15; Stop 05/28/19 at 01:16; Status DC Dextrose (Dextrose 50%-Water Syringe) 25 gm 1X ONCE IV ; Start 05/28/19 at 01:15; Stop 05/28/19 at 01:16; Status DC Insulin Human Regular (HumuLIN R VIAL) 10 unit 1X ONCE IV ; Start 05/28/19 at 01:15; Stop 05/28/19 at 01:16; Status DC Sodium Polystyrene Sulfonate (Kayexalate) 30 gm 1X ONCE PO ; Start 05/28/19 at 01:15; Stop 05/28/19 at 01:16; Status DC Aspirin (Ecotrin) 81 mg DAILY PO Last administered on 05/30/19at 09:01; Start 05/28/19 at 09:00 Clonidine HCl (Catapres) 0.1 mg PRN Q4HRS PRN PO HYPERTENSION; Start 05/28/19 at 01:45 Vitamin B Complex/ Vitamin C (Suzy-Lily) 1 tab DAILY PO Last administered on 05/30/19at 09:01; Start 05/28/19 at 09:00 Acetaminophen/ Hydrocodone Bitart (Lortab 10/325) 1 tab PRN Q6HRS PRN PO SEVERE PAIN 7-10 Last administered on 05/30/19at 12:53; Start 05/28/19 at 01:45 Metoprolol Succinate (Toprol Xl) 12.5 mg QTUTHSA PO Last administered on 05/28/19at 17:18; Start 05/28/19 at 16:00 Trazodone HCl (Desyrel) 100 mg QHS PO Last administered on 05/29/19 21:33; Start 05/28/19 at 21:00 Calcium Acetate (Phoslo) 667 mg TIDWMEALS PO Last administered on 05/30/19at 12:51; Start 05/28/19 at 08:00 Vitamin D (Vitamin D3) 1,000 unit DAILY PO Last administered on 05/30/19 09:01; Start 05/28/19 at 09:00 Cyclobenzaprine HCl (Flexeril) 5 mg QHS PO Last administered on 05/29/19 21:33; Start 05/28/19 at 21:00 Lisinopril (Prinivil) 2.5 mg DAILY PO Last administered on 05/30/19at 09:01; Start 05/28/19 at 09:00 Non-Formulary Medication ([Auryxia] ) 2 tab TIDWMEALS .ROUTE ; Start 05/28/19 at 08:00; Status UNV Insulin Human Lispro (HumaLOG) 0-7 UNITS TIDWMEALS SQ ; Start 05/28/19 at 08:00 Dextrose (Dextrose 50%-Water Syringe) 12.5 gm PRN Q15MIN PRN IV SEE COMMENTS; Start 05/28/19 at 02:00 Dextrose (Iv Dextrose 5%) 250 ml PRN Q15MIN PRN IV SEE COMMENTS; Start 05/28/19 at 02:00 Trazodone HCl (Desyrel) 100 mg 1X ONCE PO Last administered on 05/28/19at 02:31; Start 05/28/19 at 03:00; Stop 05/28/19 at 03:01; Status DC Cyclobenzaprine HCl (Flexeril) 5 mg 1X ONCE PO Last administered on 05/28/19at 02:31; Start 05/28/19 at 03:00; Stop 05/28/19 at 03:01; Status DC Piperacillin Sod/ Tazobactam Sod (Zosyn Per Pharmacy) 1 each PRN DAILY PRN MC SEE COMMENTS; Start 05/28/19 at 11:45; Stop 05/30/19 at 08:44; Status DC Darbepoetin Be (ARANESP for DIALYSIS PTS) 60 mcg WEEKLYHS SQ Last administered on 05/28/19at 21:07; Start 05/28/19 at 21:00 Piperacillin Sod/ Tazobactam Sod 2.25 gm/Sodium Chloride 50 ml @ 100 mls/hr Q8HRS IV Last administered on 05/30/19at 06:11; Start 05/28/19 at 14:00; Stop 05/30/19 at 08:44; Status DC Sodium Chloride 1,000 ml @ 1,000 mls/hr Q1H PRN IV hypotension; Start 05/29/19 at 09:17; Stop 05/29/19 at 15:16; Status DC Albumin Human 200 ml @ 200 mls/hr 1X PRN PRN IV Hypotension; Start 05/29/19 at 09:30; Stop 05/29/19 at 15:29; Status DC Acetaminophen (Tylenol) 500 mg 1X PRN PRN PO MILD PAIN / TEMP; Start 05/29/19 at 09:30; Stop 05/30/19 at 09:29; Status DC Diphenhydramine HCl (Benadryl) 25 mg 1X PRN PRN IV ITCHING; Start 05/29/19 at 09:30; Stop 05/30/19 at 09:29; Status DC Diphenhydramine HCl (Benadryl) 25 mg 1X PRN PRN IV ITCHING; Start 05/29/19 at 09:30; Stop 05/30/19 at 09:29; Status DC Sodium Chloride 1,000 ml @ 400 mls/hr Q2H30M PRN IV PATENCY; Start 05/29/19 at 09:17; Stop 05/29/19 at 21:16; Status DC Info (PHARMACY MONITORING -- do not chart) 1 each PRN DAILY PRN MC SEE PADMA NTS; Start 05/29/19 at 09:30 Amoxicillin/ Clavulanate Potassium (Augmentin 500/ 125mg) 1 tab BID PO ; Start 05/30/19 at 21:00 Active Scripts Active Reported Trazodone Hcl 100 Mg Tablet 1 Tab PO QHS Cyclobenzaprine Hcl 5 Mg Tablet 1 Tab PO QHS Clonidine Hcl 0.1 Mg Tablet 1 Tab PO PRN Q4HRS PRN Vitamin D3 (Cholecalciferol (Vitamin D3)) 2,000 Unit Tablet 1,000 Unit PO DAILY [Auryxia] 2 Tab TIDWMEALS Aspir-Low (Aspirin) 81 Mg Tablet.dr 1 Tab PO DAILY Metoprolol Succinate ( Xl ) (Metoprolol Succinate) 25 Mg Tab.er.24h 12.5 Mg PO QTUTHSA Nephro-Lily Tablet (Folic Acid/Vitamin B Comp W-C) 0.8 Mg Tablet 1 Tab PO DAILY Lisinopril 2.5 Mg Tablet 1 Tab PO DAILY Hydrocodone-Apap 10-325 (Hydrocodone Bit/Acetaminophen) 1 Each Tablet 1 Tab PO PRN Q6HRS PRN Calcium Acetate 667 Mg Tablet 667 Mg PO TIDWMEALS [place] 10-325 Tablet (Acetaminophen/Hydrocodone Bitart) 1 Each Tablet 1 Tab PO PRN Q6HRS PRN Nateglinide 120 Mg Tablet 120 Mg PO BID Vital Signs Vital Signs Date Time Temp Pulse Resp B/P (MAP) Pulse Ox O2 Delivery O2 Flow Rate FiO2 1/9/20 13:53 94 Room Air 2.0 05/30/19 11:00 97.9 73 20 105/60 (75) 97.9 Labs Laboratory Tests Test 05/29/19 05:00 05/29/19 12:57 05/29/19 16:44 05/29/19 21:13 White Blood Count 9.6 x10^3/uL (4.0-11.0) Red Blood Count 3.11 x10^6/uL (4.30-5.70) Hemoglobin 10.6 g/dL (13.0-17.5) Hematocrit 31.2 % (39.0-53.0) Mean Corpuscular Volume 100 fL (79-100) Mean Corpuscular Hemoglobin 34 pg (25-35) Mean Corpuscular Hemoglobin Concent 34 g/dL (31-37) Red Cell Distribution Width 16.1 % (11.5-14.5) Platelet Count 237 x10^3/uL (140-400) Neutrophils (%) (Auto) 76 % (31-73) Lymphocytes (%) (Auto) 11 % (24-48) Monocytes (%) (Auto) 9 % (0-9) Eosinophils (%) (Auto) 3 % (0-3) Basophils (%) (Auto) 1 % (0-3) Neutrophils # (Auto) 7.4 x10^3/uL (1.8-7.7) Lymphocytes # (Auto) 1.1 x10^3/uL (1.0-4.8) Monocytes # (Auto) 0.8 x10^3/uL (0.0-1.1) Eosinophils # (Auto) 0.3 x10^3/uL (0.0-0.7) Basophils # (Auto) 0.1 x10^3/uL (0.0-0.2) Sodium Level 135 mmol/L (136-145) Potassium Level 4.9 mmol/L (3.5-5.1) Chloride Level 96 mmol/L (98-107) Carbon Dioxide Level 28 mmol/L (21-32) Anion Gap 11 (6-14) Blood Urea Nitrogen 45 mg/dL (8-26) Creatinine 7.4 mg/dL (0.7-1.3) Estimated GFR (Cockcroft-Gault) 7.3 Glucose Level 106 mg/dL (70-99) Calcium Level 9.2 mg/dL (8.5-10.1) Glucose (Fingerstick) 89 mg/dL (70-99) 120 mg/dL (70-99) 106 mg/dL (70-99) Test 05/30/19 08:01 05/30/19 12:44 Glucose (Fingerstick) 89 mg/dL (70-99) 121 mg/dL (70-99) Laboratory Tests Test 05/29/19 16:44 05/29/19 21:13 05/30/19 08:01 05/30/19 12:44 Glucose (Fingerstick) 120 mg/dL (70-99) 106 mg/dL (70-99) 89 mg/dL (70-99) 121 mg/dL (70-99) Allergies Allergies Coded Allergies Type Severity Reaction Last Updated Verified No Known Drug Allergies 12/24/15 No Disposition/Orders: D/C to Home GEOVANNA LAZCANO MD May 30, 2019 15:02
[2019-05-30] MEDS ORDERED: MULT1TAB90 PO (15:04)
[2019-05-30] MEDS ORDERED: AMOX1TAB10 PO (15:04)
--- NOTE | 2019-05-30 15:06 | DISCH ---
DISCHARGE INSTRUCTIONS Condition on Discharge Condition on Discharge: Stable Activity After Discharge Activity Instructions for Disc: Activity as tolerated Bathing Instructions: Shower-keep dressing dry, No Tub Bath until see Driving Instructions after Dis: Do not drive Weight Bearing Status after Di: As tolerated Diet after Discharge Diet after Discharge: Renal Dialysis, Low Sodium 2 gm Diet Texture: Regular Liquid Texture: Thin Liquid Swallowing Supervision: None needed Wound Incision Care Wound/Incision Care: Change dressing Contacting the DRCarlos after DC Call your doctor for: If your condition worsens Treatment/Equipment after DC Adaptive Equipment Issued: None Warfarin Follow-Up Warfarin Follow UP: SEE UROLOGY SOON GEOVANNA LAZCANO MD May 30, 2019 15:06
--- NOTE | 2019-05-30 15:45 | RAD ---
RENAL COMPLETE BILATERAL History: Renal mass on CT Comparison: May 27, [address] abdomen pelvis; CT May 14, 2017 Findings: Multiple sonographic images of the kidneys and urinary bladder are submitted. Right kidney measured 10.6 x 7.5 x 5.7 cm from the kidney measured 11.6 x 4.9 x 5.8 cm. Left kidney is suboptimally seen on this exam due to patient's body habitus. There is no hydronephrosis demonstrated of either kidney. There is hypoechoic lesion of the inferior right kidney about 3 x 2.3 x 2.4 cm in size not associated with internal vascularity on color Doppler imaging. This corresponds with abnormality on CT. Previously seen focus of density of the medial left kidney on CT cannot be seen by ultrasound although size is fairly similar comparing with May 14, 2017 CT exam. Urinary bladder morphology is within normal limits. Impression: 1. There is inferior right renal cyst. Previously demonstrated abnormality on CT of the medial left kidney could not be visualized by ultrasound, left kidney poorly visualized due to patient's body habitus. However focus of density of the medial left kidney is fairly similar compared with previous CT exam May 14, 2017. Electronically signed by: Frank Garcia MD (05/30/2019 3:42 PM) [id number]
[2019-05-30 16:46] VITALS: BP 111/64
[2019-05-30] MEDS: METOPROLOL SUCC 24HR ER 25 MG TAB.ER.24H. PO SCH (16:46)
--- NOTE | 2019-05-30 18:42 | NUR ---
SPOKE WITH PTS 24 HOUR CAREGIVER CHARIS ABOUT DISCHARGE PLANNING. LET CAREGIVER KNOW THAT THE PT WOULD ARRIVE VIA AMBULANCE AFTER 2029 WHICH IS THE PTS SCHEDULED FICTION WRITER TIME. PT STATED HE WAS GETTING HIS OWN TRANSPORTATION AND FAMILY AND CAREGIVER CALLED TO SAY THAT THE PT TRAVELS VIA EMS ALWAYS.
--- NOTE | 2019-05-30 19:04 | NUR ---
PICTURED WOUNDS. PUT WOUND PHOTOS IN THE CHART AND WENT OVER DISCHARGE PAPERS WITH THE PT WELL CAREGIVER OVER THE PHONE.
[2019-05-30] MEDS ORDERED: AMOXICILLIN/K CLAV 500/125MG TABLET. PO SCH (21:00)
== END 2019-05-30 21:00 | disposition home or self-care (01) | DRG 871 ==
LOC: ER 21:57 → ED HOLD 23:45 → CVICU 05-28 14:26 → 2 NORTH 05-28 15:04
PROVIDERS: ADMIT Internal Medicine; ATTEND Internal Medicine
PROC: 5A1D70Z Performance of Urinary Filtration, Intermittent, Less than 6 Hours Per Day (ICD-10-PCS; 2019-05-28)
PROC: 5A1D70Z Performance of Urinary Filtration, Intermittent, Less than 6 Hours Per Day (ICD-10-PCS; principal; 2019-05-29)
DX: A41.9 Sepsis, unspecified organism (principal); N18.6 End stage renal disease; N10 Acute pyelonephritis; I13.2 Hypertensive heart and chronic kidney disease with heart failure and with stage 5 chronic kidney disease, or end stage renal disease; I48.20 Chronic atrial fibrillation, unspecified; D64.9 Anemia, unspecified; E05.90 Thyrotoxicosis, unspecified without thyrotoxic crisis or storm; E11.22 Type 2 diabetes mellitus with diabetic chronic kidney disease; E21.3 Hyperparathyroidism, unspecified; E78.00 Pure hypercholesterolemia, unspecified; E87.5 Hyperkalemia; I25.10 Atherosclerotic heart disease of native coronary artery without angina pectoris; I50.9 Heart failure, unspecified; J44.9 Chronic obstructive pulmonary disease, unspecified; K80.20 Calculus of gallbladder without cholecystitis without obstruction; M48.00 Spinal stenosis, site unspecified; Z79.01 Long term (current) use of anticoagulants; Z82.49 Family history of ischemic heart disease and other diseases of the circulatory system; Z83.3 Family history of diabetes mellitus; Z87.11 Personal history of peptic ulcer disease; Z87.442 Personal history of urinary calculi; Z99.2 Dependence on renal dialysis; F41.9 Anxiety disorder, unspecified
CPT/HCPCS: 36415; 74176; 76770; 80048; 80053; 81001; 82962; 83605; 85007; 85025; 87040; 87086; 87186; 93005; 96374; 96375; J0610; J0696; J0882; J1815; J2543; 99285-25; G0378

== ENCOUNTER → 2019-12-12 | Day surgery (SDC) | payer MEDICARE, OTHER ==
[~2019-12-12] MED LIST changes: +AMOX1TAB10 PO; +ASPI81TA50 PO; +AURYXIA; +CHOL200027 PO; +CLON0.1T PO; +CYCL5TAB PO; +IV NORMAL SALINE 1000ML BAG 1,000 ML IV ONE; +LIDOCAINE 2% PF 5 ML VIAL. ONE; +MULT1TAB90 PO; +PROPOFOL 10 MG/ML (20ML) VIAL. IV ONE; +TRAZ-123 PO
[2019-12-12 13:44] VITALS: BP 192/67
== END | disposition home or self-care (01) ==
LOC: SURG 12:16
PROVIDERS: ATTEND Internal Medicine Gastroenterology
DX: K92.2 Gastrointestinal hemorrhage, unspecified (principal); Z11.59 Encounter for screening for other viral diseases; I10 Essential (primary) hypertension; E11.9 Type 2 diabetes mellitus without complications; Z98.890 Other specified postprocedural states; Z79.899 Other long term (current) drug therapy
CPT/HCPCS: 43450; 87426; J2704; U0003